=== PATIENT | female | born 1955 | race Caucasian/White ===

== ENCOUNTER 2025-08-16 18:39 | Inpatient (IN) | payer MEDICARE, SELFPAY ==
[2025-08-16 18:40] VITALS: BP 177/91; PULSE 100; RESP 18; TEMP 36.4; O2SAT 99
--- NOTE | 2025-08-16 19:10 | RAD_ITS ---
PROCEDURE: HIP, UNI W/ PELVIS 2-3 VIEWS 08/16/2025 REASON FOR EXAM: FALL- UNABLE TO AMBULATE TECHNIQUE: Procedure Code: RAD Modality: DX Procedure: HIP, UNI W/ PELVIS 2-3 VIEWS Laterality: Right COMPARISON: None. FINDINGS: Acute impacted fracture of the right femoral neck with foreshortening and mild varus angulation. No additional acute fracture or dislocation appreciated. Bilateral hip joints are intact with mild degenerative arthrosis. Degenerative changes of the lower lumbosacral spine. Qualitative osteopenia. Degenerative calcified probable uterine fibroid in the left hemipelvis. RAD/HIP, UNI W/ Pelvis 2-3 Views IMPRESSION: Acute impacted fracture of the right femoral neck. No dislocation. Reading Location: [id number]
--- NOTE | 2025-08-16 19:10 | RAD_ITS ---
PROCEDURE: CHEST 1 VIEW 08/16/2025 REASON FOR EXAM: FALL TECHNIQUE: Frontal view of the chest. COMPARISON: None available. FINDINGS: Cardiomegaly. Increased central vascular markings. Blunting of the left costophrenic angle may reflect a small left basilar pleural effusion and/or atelectasis. No sizable pleural effusion on the right. No pneumothorax. No focal consolidation. Mild degenerative changes of the spine. No acute fracture appreciated. RAD/Chest 1 View IMPRESSION: Cardiomegaly. Possible small left basilar pleural effusion and/or atelectasis. Reading Location: [id number]
[2025-08-16 19:39] VITALS: BMI 19.3
--- NOTE | 2025-08-16 20:03 | PCM.HP.STD ---
HPI - General General Date of Admission: 08/16/25 Date of Service: 08/16/25 Chief Complaint: R hip pain s/p fall. HPI Narrative The patient is a 70 y/o M w/ PMHx: Possible chronic microcytic anemia, Tobacco use, Psoriatic arthritis, Rheumatoid arthritis not on any rheumatological agents, Anxiety/panic attacks not on any regimen, RLS who presents to [facility] ED on 08/16/2025 with history of tripping and falling over a curb while shopping at [employer] with unfortunately onset significant right hip pain and debility prompting EMS and transition to the ED for evaluation. Patient noted to the beginning she had sharp stabbing and severe pain to the right hip rating it 10 out of 10 currently improved to a throbbing aching 2-3 out of 10 in severity following ED interventions. Workup in ED included T97.6, heart rate 100, BP 177/91, respiratory rate 18, 99% room air, CBC with WC 6.1, human 10, MCV 76, platelets 337 with lymphopenia, pending coags upon request evaluation of patient, BMP with potassium 3.2, BUN/creatinine 16/0.54, GFR 98, glucose 115, chest x-ray with cardiomegaly with possible small left basilar pleural effusion and/or atelectasis, plain film of the right hip and pelvis with an acute impacted fracture of the right femoral neck with no dislocation. Patient notes that she is active, ambulatory and performs all her own ADLs. She denies any marked shortness of breath or chest pain. She does continue to smoke but this is only 1 to 2 cigarettes occasionally and not on a daily basis. ED physician discussed case with orthopedic surgeon Dr. Deras. In the ED patient ministered morphine 4 mg IV x 1, Zofran 4 mg IV x 1. [facility] Medical History Restless leg syndrome Panic attacks Anxiety Tobacco use Psoriatic arthritis Rheumatoid arthritis Fibromyalgia Home Medications ?Medication ?Instructions ?Recorded ?Last Taken ?Type cyanocobalamin (vitamin B-12) 1 cap PO DAILY 08/16/25 Unknown History magnesium-potassium 99 mg- 90 mg 1 cap PO DAILY 08/16/25 Unknown History capsule multivitamin (Daily Multi-Vitamin 1 tab PO DAILY 08/16/25 Unknown History tablet) Allergy/AdvReac Type Severity Reaction Status Date / Time Penicillins (PCN) Allergy Severe Anaphylaxis Verified 08/16/25 18:41 codeine AdvReac Intermediate HEADACHE Verified 08/16/25 18:41 Family History (Updated 08/16/25 @ 20:[address] Lexie Byrd MD) Mother Alcohol abuse Alcoholic cirrhosis of liver Father Alcohol abuse Diabetes Alcoholic pancreatitis Surgical History History of tonsillectomy and adenoidectomy Social History (Updated 08/16/25 @ 20:[address] Lexie Byrd MD) household members: significant other Smoking Status: Current some day smoker tobacco type: cigarettes alcohol intake: current alcohol intake frequency: holidays/special occasions only substance use type: does not use ROS ROS Narrative Admission Review of Systems: CONSTITUTIONAL: No weight loss, fever, chills, + weakness or fatigue. HEENT: Eyes: No visual loss, blurred vision, double vision or yellow sclerae. Ears, Nose, Throat: No hearing loss, sneezing, congestion, runny nose or sore throat. SKIN: No rash or itching, lesions, wounds except + psoriatic skin changes, occasional stage ecchymoses, abrasion. CARDIOVASCULAR: No chest pain, chest pressure or chest discomfort, palpitations, edema, orthopnea, syncopal events. RESPIRATORY: No shortness of breath, cough or sputum, wheezing, hemoptysis. GASTROINTESTINAL: No anorexia, nausea, vomiting or diarrhea, abdominal pain, melena, BRBPR. GENITOURINARY: No dysuria, frequency, urgency or retention. NEUROLOGICAL: No headache, dizziness, syncope, paralysis, ataxia, numbness or tingling in the extremities, focal weakness, change in bowel or bladder control, seizure. MUSCULOSKELETAL: + muscle, back pain, joint pain or stiffness. HEMATOLOGIC: + Per current labs does appear anemic, unclear if chronic. No marked easy bleeding or bruising reported. LYMPHATICS: No enlarged nodes. No history of splenectomy. PSYCHIATRIC: + History of anxiety and panic attacks. ENDOCRINOLOGIC: No reports of sweating, cold or heat intolerance. No polyuria or polydipsia. ALLERGIES: + History of anaphylaxis. Vital Signs Vital Signs Vital Signs: 08/16/25 18:40 08/16/25 19:39 Temperature 97.6 F L Temperature Source Temporal Pulse Rate 100 Respiratory Rate 18 Respiratory Effort Normal Non-Labored Respiratory Depth Normal Respiratory Pattern Normal Blood Pressure 177/91 H Blood Pressure Mean 119 Pulse Ox 99 Oxygen Delivery Method Room Air Weight Weight: 109 lb 5.588 oz Body Mass Index (BMI) 19.3 Physical Exam Narrative Physical Examination: General: Awake, alert, oriented x 3 and cooperative, lying in the ED bed, fatigued, notes throbbing discomfort of the right hip rating it 2-3 out of 10 in severity, improved since initial ED arrival. Skin: Normal color, normal turgor, no icterus, no cyanosis except occasional psoriatic skin change, occasional stage ecchymoses, abrasion. HEENT: AT/NC, EOMI, PERRLA, mildly dry MM, no carotid bruits or JVD noted. Lungs: Mildly diminished, greater bases, mild increased respiratory rate but no distress, no rales, ronchi or wheezing. Heart: Mildly tachycardic with regular rhythm; no gallop, rub audible. Abdomen: Soft, thin habitus, NTTP, ND, normal BS, no appreciated HSM. Extremities: No cyanosis, no clubbing, mild bilateral ankle not markedly pitting chronic edema, see skin. Neurological: Patient awake, alert, oriented as noted, cognitive function intact; pupils equally reactive to light and accommodation, cranial nerves grossly normal, moving all 4 extremities except expected limitation right lower extremity given fall with hip fracture, no focal deficits, strength severely globally decreased secondary to acute presentation complaints. Psychiatric: Affect appears anxious, verbalizing that she is anxious, does have history of anxiety and panic attacks. Results Lab / Micro Data 08/16/25 19:35 08/16/25 19:35 Imaging Radiology Impression Chest X-Ray 08/16/25 19:10 IMPRESSION: Cardiomegaly. Possible small left basilar pleural effusion and/or atelectasis. Reading Location: [facility] Hip/Pelvis X-Ray 08/16/25 19:10 IMPRESSION: Acute impacted fracture of the right femoral neck. No dislocation. Reading Location: [facility] Assessment & Plan Assessment/Plan (1) Closed right hip fracture: PLAN: Plan The patient is a 70 y/o M w/ PMHx: Possible chronic microcytic anemia, Tobacco use, Psoriatic arthritis, Rheumatoid arthritis not on any rheumatological agents, Anxiety/panic attacks not on any regimen, RLS who presents to [facility] ED on 08/16/2025 with history of tripping and falling over a curb while shopping at [employer] with unfortunately onset significant right hip pain and debility prompting EMS and transition to the ED for evaluation. #1. General debility, right hip pain s/p mechanical fall w/ acute impacted fracture of the right femoral neck: Orthopedic surgery consulted from ED. Will admit to [facility], maintain NPO after midnight for planned intervention per orthopedic surgery 08/17/2025, continue gentle IVFs, ann placement, monitor I/Os, frequent positioning, fall precautions, Pain, anti-emetic regimen. PT/OT following operative intervention. CM consulted for discharge planning. Per NSQIP patient low or potentially moderate risk for perioperative cardiac events given she does have cardiomegaly but denies any concerning symptomatology and no previous cardiac history reported; however, to be cautious will obtain preoperative EKG, supplement potassium, obtain magnesium level as noted, discussed with orthopedic surgeon and if these are appropriate and no concerns arise with plan transition to the OR 08/17/2025. #2. Elevated BP without hypertensive diagnosis: Patient denies any history of hypertensive history, elevated BP in the ED, likely pain related as well as anxiety, will have as needed as needed hydralazine. #3. Hypokalemia: Admission K+ 3.2, magnesium level requested, supplementation given, repeat level in AM. #4. Microcytic anemia, unclear chronicity: Admission hemoglobin 10, MCV 76, no clear comparison, will obtain iron panel, ferritin, guaiac to be cautious, continue to trend CBC to further elucidate chronicity. #5. Rheumatoid arthritis, psoriatic arthritis: Noted rheumatological disease history, notes managed without medications, encourage follow-up with rheumatology as previously arranged or as needed. #6. Tobacco Abuse: Encouraged cessation, inpatient consultation per RT, NR if desired. #7. Anxiety/panic attacks: Will have as needed hydroxyzine, suspect tachycardia and elevated blood pressure likely related. #8. DVT prophylaxis: SCDs, defer chemoprophylaxis given planned intervention per orthopedic surgery AM. #9. CODE status: Patient does not have [facility] admitted attorneys or living [address] but she notes her significant who she lives with would be here Medical Decision Making necessary. Discussed CODE status at length including difference between FULL code, DNR-CCA and DNR-CC status. Following discussions about the differences in these status, requested Full Code status. Advanced Care Planning Face to Face Time: 16 minutes. Charges/Coding Visit Charges Inpatient E&M: 36578 Init Hosp L3
[2025-08-16 20:25] LABS: Hematocrit 35.1 % (37-47); Hemoglobin 10.0 g/dL (12.0-15.0); Immature Granulocytes Count 0.040 X10^3/uL (0.0-0.0); Mean Corp Hgb Conc 28.5 g/dL (32-36); Mean Corpuscular Volume 76.0 fL (81-99); Mean Platelet Vol. 9.9 fl (6.2-12.0); NRBC Flagged by Analyzer 0 % (0-5); Platelet Count 337 K/mm3 (150-450); RBC Distribution Width CV 16.0 % (11.6-14.6); RBC Distribution Width SD 43.7 fl (35.1-43.9); Red Blood Count 4.62 M/mm3 (4.2-5.4); White Blood Count 6.1 K/mm3 (4.4-11.0)
[2025-08-16 20:33] LABS: Anion Gap 15 (5-15); BUN 16 mg/dL (4-19); BUN/Creat Ratio 28.8 RATIO (10-20); Calcium,Total 8.7 mg/dL (7.6-11.0); Carbon Dioxide 25.6 mmol/L (21.0-32.0); Chloride 102 mmol/L (98-108); Estimated Creatinine Clearance 50.50 ml/min (50-250); Glucose 115 mg/dL (70-99); Potassium 3.2 mmol/L (3.3-5.1)
[2025-08-16 20:54] VITALS: BP 171/71; PULSE 84; RESP 16; TEMP 36.6; O2SAT 92
--- NOTE | 2025-08-16 21:22 | EDS_ITS ---
HPI History of Present Illness HPI Narrative: Patient presents with right hip pain that began after a fall today. Patient states she tripped over an uneven curb and landed on her right hip. Patient states she was unable to stand after the fall. Patient describes her pain as throbbing. Patient states it is worse with movement. Patient denies any paresthesias or weakness. Patient Nuys any head injury or loss of consciousness. Patient denies any other injuries. Chief Complaint: Fall Informant: patient Occured/Mechanism Mechanism/Context: Yes fall Onset/Context/Timing Onset: Today Context: Sudden Onset Timing: Continuous Quality of Pain: Throbbing Location: Right hip Worsened by: Movement Relieved by: Nothing Associated Symptoms Associated Symptoms: Negative for Parasthesia PFSH PFS Medical History Scoliosis Restless leg syndrome Panic attacks Anxiety Tobacco use Psoriatic arthritis Rheumatoid arthritis Fibromyalgia Home Medications ?Medication ?Instructions ?Recorded ?Last Taken ?Type cyanocobalamin (vitamin B-12) 1 cap PO DAILY 08/16/25 Unknown History magnesium-potassium 99 mg- 90 mg 1 cap PO DAILY Unknown History capsule multivitamin (Daily Multi-Vitamin 1 tab PO DAILY 08/16 Unknown History tablet) Allergy/AdvReac Type Severity Reaction Status Date / Time Penicillins (PCN) Allergy Severe Anaphylaxis Verified 08/16/25 18:41 codeine AdvReac Intermediate HEADACHE Verified 08/16/25 18:41 Family History (Updated 08/16/25 @ 20:[address] Lexie Byrd MD) Mother Alcohol abuse Alcoholic cirrhosis of liver Father Alcohol abuse Diabetes Alcoholic pancreatitis Surgical History History of tonsillectomy and adenoidectomy Social History household members: significant other Smoking Status: Light Smoker (<10/day) alcohol intake: current alcohol intake frequency: holidays/special occasions only substance use type: does not use ROS ROS ED Constitutional Constitutional ED: Denies chills or fever(s) Eyes Eyes: Denies blurry vision or change in vision ENT ENT ED: Denies rhinorrhea or sore throat Cardiovascular Cardiovascular: Denies chest pain or palpitations Respiratory/Chest Respiratory/Chest: Denies cough or dyspnea Gastrointestinal Gastrointestinal: Denies nausea or vomiting Genitourinary Genitourinary ED: Denies dysuria or hematuria Musculoskeletal Musculoskeletal: Denies back pain or neck pain Integumentary Denies abscess or rash Neurologic Neurologic: Denies headache(s) or weakness Allergic/Immunologic Allergic/Immunologic ED: Denies mouth swelling or urticaria EXAM Physical Exam Const Vital Signs: 08/16/25 18:40 08/16/25 19:39 Temperature 97.6 F L Temperature Source Temporal Pulse Rate 100 Respiratory Rate 18 Respiratory Effort Normal Non-Labored Respiratory Depth Normal Respiratory Pattern Normal Blood Pressure 177/91 H Blood Pressure Mean 119 Pulse Ox 99 Oxygen Delivery Method Room Air Positive well nourished and well developed General Appearance ED: well developed and NAD HEENT Reports moist mucous membranes normocephalic Neck full ROM and supple Resp normal respiratory effort and clear to auscultation bilaterally Cardio regular rate and regular rhythm GI non-tender and non-distended Palpation: soft Extremity Extremity Narrative: There is shortening and external rotation of the right lower extremity. There is pain with internal and external rotation of the right lower extremity. Pedal pulses are equal bilaterally. Sensation is intact to light touch bilaterally in the lower extremities. General Extremety ED: Yes weight-bearing difficulty General Extremity: weight-bearing difficulty Neuro oriented x3, CN's II-XII intact bilaterally, moves all extremities and no sensory deficits noted Sensorium / Orientation: alert Motor Exam: strength 5/5 throughout Psych mental status grossly normal MDM MDM MDM Narrative Medical decision making narrative: Differential diagnosis includes hip fracture, contusion, and sprain. X-rays of the right hip and pelvis will be obtained to assess for fracture. Lab Data Attestation: I reviewed the patient's lab results. Lab results narrative: CBC was reviewed. There is a mild anemia with a hemoglobin of 10.0 and hematocrit 35.1. Platelets were normal. Labs: Laboratory Results - last 24 hr 08/16/25 19:35 WBC 6.1 RBC 4.62 Hgb 10.0 L Hct 35.1 L MCV 76.0 L MCH 21.6 L MCHC 28.5 L RDW Std Deviation 43.7 RDW Coeff of Oli 16.0 H Plt Count 337 MPV 9.9 Immature Gran % (Auto) 0.700 Neut % (Auto) 73.4 H Lymph % (Auto) 13.1 L [place] % (Auto) 8.4 Eos % (Auto) 3.1 Baso % (Auto) 1.3 H Absolute Neuts (auto) 4.4 Absolute Lymphs (auto) 0.79 L Nucleated RBC % 0 Sodium 142 Potassium 3.2 L Chloride 102 Carbon Dioxide 25.6 Anion Gap 15 BUN 16 Creatinine 0.54 L Estim Creat Clear Calc 50.50 Est GFR (MDRD) Non-Af 98 BUN/Creatinine Ratio 28.8 H Glucose 115 H Calcium 8.7 Radiography Diagnostic Testing: Clinical Impression(s) from Imaging Studies Chest X-Ray 08/16/25 19:10 IMPRESSION: Cardiomegaly. Possible small left basilar pleural effusion and/or atelectasis. Reading Location: [facility] Hip/Pelvis X-Ray 08/16/25 19:10 IMPRESSION: Acute impacted fracture of the right femoral neck. No dislocation. Reading Location: [facility] X-rays of the right hip and pelvis were obtained. There are 3 views. On my independent interpretation, there is a impacted fracture of the femoral neck of the right hip. There is no pelvic fracture noted. Radiologist also interpreted the x-rays and agrees. Portable 1 view chest x-ray was obtained. On my independent interpretation, lung hair show atelectasis and a small left basilar pleural effusion. There is cardiomegaly noted. Bony thorax is normal. There is no acute process noted. Radiologist also interpreted the x-ray and agrees. Treatment and Re-Evaluation Narrative: Patient and family were advised of the findings. Patient was debating whether she wanted to go back to her hometown for definitive therapy. Patient eventually agreed to stay here. Case was discussed with Dr. Deras. He will see the patient in the hospital. Case was discussed with the hospitalist. She will admit the patient to her service. Discharge Plan Disposition Disposition: Acute Care [facility] Discharge Date/Time: 08/16/25 21:22
[2025-08-16 21:23] VITALS: BMI 20.1
[2025-08-16 21:24] VITALS: BP 169/84; PULSE 96; RESP 17; TEMP 37; O2SAT 95
--- NOTE | 2025-08-16 21:28 | EKG12_ITS ---
Test Reason : Blood Pressure : */* mmHG Vent. Rate : 86 BPM Atrial Rate : 86 BPM P-R Int : 168 ms QRS Dur : 72 ms QT Int : 386 ms P-R-T Axes : 62 9 47 degrees QTcB Int : 461 ms Normal sinus rhythm Septal infarct , age undetermined Abnormal ECG No previous ECGs available Confirmed by Joni Clemons ([id number]), editor continuity and script NICHOLAS CORONADO ([id number]) on 08/27/2025 11:44:06 AM Also confirmed by Joni Clemons ([id number]), editor continuity and script NICHOLAS CORONADO ([id number]) on 08/28/2025 10:12:00 AM Referred By: GOLDY Confirmed By: Joni Clemons
[2025-08-16] MEDS: Senna/Docusate Sodium 1 Tablet 2 TABLET PO (21:35)
[2025-08-16] MEDS: Potassium Chloride Oral Tablet 20 MEQ 40 MEQ PO (21:35)
[2025-08-16 21:43] LABS: Magnesium 1.9 mg/dL (1.5-2.2)
[2025-08-16 21:50] LABS: Ferritin 13 ng/mL (22-378); Iron 13 ug/dL (50-170); Iron Binding Capacity,Unsat 442 ug/dL (228-428)
[2025-08-16 22:03] VITALS: BMI 20.1
[2025-08-16] MEDS: 0.9% Normal Saline (1000mL) 1,000 ML 75 ML IV (22:22)
[2025-08-16] MEDS: 0.9% Saline Lock 10 ML Syringe IV (22:22)
[2025-08-16 22:31] LABS: Prothrombin Time (Protime)PT. 13.0 SECONDS (11.7-14.9)
[2025-08-16 22:32] LABS: Partial Thromboplast Time 30.7 Seconds (24.1-36.2)
[2025-08-16 22:38] LABS: Iron Binding Capacity,Total 455 ug/dL (250-450)
[2025-08-17] VITALS (19 sets, daily range): BP systolic 123–171; BP diastolic 63–97; PULSE 81–112; RESP 16–18; TEMP 36.5–43.3; O2SAT 88–100; BMI 20.1
--- NOTE | 2025-08-17 05:50 | HIP_PTH ---
PATIENT: JAYLYN EASTMAN LOC: [facility] U#:[id number] AGE/SX: 70/F ROOM: DE322 RE08/16/[address]: Dr. Zack Hurtado MD : 1955 BED: 1 DIS: 08/20/2025 SPEC #: [id number] RECD: 08/19/25 07:40 STATUS: LYSSA REINA #: [id number] NAYANA: 08/17/25 05:[address]: Armando Deras DEPT: SURGICAL PATHOLOGY RECD BY: Justus Robles ENTERED: 08/19/25 10:14 SP TYPE: TOTAL HIP OTHR DR: MD Dr. Zack Lee MD No Primary Care Phys Tissues: A - Hip, NOS Procedures: Decalcification bone/plaque Surgery Specimen Level III HEADER OPERATION: Total hip replacement PRE-OP DIAGNOSIS: Closed right hip fracture TISSUE SUBMITTED: A- Right femoral head debrided bone and tissue MICROSCOPIC DIAGNOSIS A. Bone, femur, head, right, total hip replacement: * Benign cartilage and bone with areas of degenerative changes and disrupted bone trabeculae with hemorrhage consistent with fracture * Areas of trilineage hematopoiesis MICROSCOPIC DESCRIPTION Slides are reviewed. GROSS DESCRIPTION A. Received in formalin labeled with the patient's name and date of . Designated as right femoral head debrided bone and tissue is a 4.3 x 4.3 x 3.3 cm slightly irregular ovoid femoral head with a 6 small portion of attached femoral neck, 1.5 cm in length by 1.9 cm in diameter. The resection margin is somewhat shaggy and congested. The articular cartilage is fitzgerald with erythematous granularity and focal areas of detachment; osteophyte formations and eburnation are not identified. Sectioning reveals fitzgerald-yellow to red, trabeculated medullary bone. [employer] sections are submitted in 2 cassettes, following decalcification as follows: A1: Femoral headA2: Femoral head with portion of attached, apparent femoral neck DC 08/19/2025 CPT:89873,31188
[2025-08-17] MEDS: Sodium Chloride 15ML DROPS 2 DRP OPHTHALMIC ×3 (06:34→21:51)
[2025-08-17 06:35] LABS: Hematocrit 31.0 % (37-47); Hemoglobin 9.2 g/dL (12.0-15.0); Immature Granulocytes Count 0.020 X10^3/uL (0.0-0.0); Mean Corp Hgb Conc 29.7 g/dL (32-36); Mean Corpuscular Volume 74.2 fL (81-99); Mean Platelet Vol. 9.9 fl (6.2-12.0); NRBC Flagged by Analyzer 0 % (0-5); Platelet Count 312 K/mm3 (150-450); RBC Distribution Width CV 15.9 % (11.6-14.6); RBC Distribution Width SD 42.7 fl (35.1-43.9); Red Blood Count 4.18 M/mm3 (4.2-5.4); White Blood Count 8.6 K/mm3 (4.4-11.0)
[2025-08-17] MEDS: 0.9% Saline Lock 10 ML Syringe IV ×3 (06:35→18:48)
[2025-08-17 07:00] LABS: AST(SGOT) 22 U/L (<=31); Alanine Aminotransfer ALT/SGPT 15 U/L (<=34); Albumin, Serum 3.8 g/dL (3.4-4.8); Alkaline Phosphatase 102 U/L (35-104); Anion Gap 11 (5-15); BUN 14 mg/dL (4-19); BUN/Creat Ratio 24.1 RATIO (10-20); Calcium,Total 8.3 mg/dL (7.6-11.0); Carbon Dioxide 27.7 mmol/L (21.0-32.0); Chloride 104 mmol/L (98-108); Estimated Creatinine Clearance 51.01 ml/min (50-250); Globulin 2.3 g/dL (2.2-4.2); Glucose 122 mg/dL (70-99); Potassium 3.3 mmol/L (3.3-5.1)
--- NOTE | 2025-08-17 08:01 | CONS.ORTHO ---
HPI Consult Data Date of Consult: 08/17/25 HPI Narrative Reason for Consultation: Right hip pain HPI Narrative: JAYLYN EASTMAN, is a 70 F who presents with right hip pain. Patient is a smoker and has a history of reported rheumatoid and psoriatic arthritis neither of which is treated with any significant medications. Patient notes she was at the local [facility] when she tripped on the curb and fell. She has currently 4 out of 10 pain in her right hip worse with movement, better with immobilization. Denies any associated numbness and tingling distally. Patient prior to the fall functioned independently in her own home. Patient did her own cooking and cleaning. She did some of her outside work with assistance of her son. She describes a mildly active lifestyle. Denies any antecedent right hip pain. Patient does confirm a history of anaphylaxis or tongue swelling with penicillin injections in the past. Patient's family was at bedside for the entirety of the encounter. [facility] Medical History Macula lutea degeneration Cataract Scoliosis Restless leg syndrome Panic attacks Anxiety Tobacco use Psoriatic arthritis Rheumatoid arthritis Fibromyalgia Home Medications ?Medication ?Instructions ?Recorded ?Last Taken ?Type cyanocobalamin (vitamin B-12) 1 cap PO DAILY 08/16/25 Unknown History magnesium-potassium 99 mg- 90 mg 1 cap PO DAILY 08/16/25 Unknown History capsule multivitamin (Daily Multi-Vitamin 1 tab PO DAILY 08/16/25 Unknown History tablet) perservation 2 drp ophthalmic (eye) TID eyes 08/16/25 Unknown History Allergy/AdvReac Type Severity Reaction Status Date / Time Penicillins (PCN) Allergy Severe Anaphylaxis Verified 08/16/25 18:41 codeine AdvReac Intermediate HEADACHE Verified 08/16/25 18:41 Family History Mother Alcohol abuse Alcoholic cirrhosis of liver Father Alcohol abuse Diabetes Alcoholic pancreatitis Surgical History History of tonsillectomy and adenoidectomy Social History household members: significant other Smoking Status: Light Smoker (<10/day) alcohol intake: current alcohol intake frequency: holidays/special occasions only substance use type: does not use ROS ROS Narrative 14 point review systems outside of what is mentioned in HPI is negative Vital Signs Vital Signs Vital Signs: 08/16/25 18:40 08/16/25 19:39 08/16/25 20:54 Temperature 97.6 F L 98 F Temperature Source Temporal Pulse Rate 100 84 Pulse Strength Respiratory Rate 18 16 Respiratory Effort Normal Non-Labored Respiratory Depth Normal Respiratory Pattern Normal Blood Pressure 177/91 H 171/71 H Blood Pressure Mean 119 104 Blood Pressure Source Blood Pressure Position Blood Pressure Location Pulse Ox 99 92 Oxygen Delivery Method Room Air Oxygen Flow Rate (L/min) 08/16/25 21:24 08/16/25 22:00 08/16/25 22:00 Temperature 98.6 F Temperature Source Temporal Pulse Rate 96 Pulse Strength Strong (3+) Respiratory Rate 17 Respiratory Effort Respiratory Depth Respiratory Pattern Blood Pressure 169/84 H Blood Pressure Mean 112 Blood Pressure Source Monitor Blood Pressure Position Semi-Fowlers Blood Pressure Location Right Arm Pulse Ox 95 Oxygen Delivery Method Room Air Room Air Oxygen Flow Rate (L/min) 08/16/25 22:07 08/17/25 04:15 08/17/25 04:19 Temperature 98.9 F Temperature Source Oral Pulse Rate 95 Pulse Strength Respiratory Rate 18 Respiratory Effort Normal Non-Labored Respiratory Depth Normal Respiratory Pattern Normal Blood Pressure 157/76 H Blood Pressure Mean 103 Blood Pressure Source Monitor Blood Pressure Position Semi-Fowlers Blood Pressure Location Right Arm Pulse Ox 88 97 Oxygen Delivery Method Room Air Room Air Room Air Oxygen Flow Rate (L/min) 08/17/25 04:20 08/17/25 06:20 08/17/25 06:32 Temperature 99.4 F H Temperature Source Oral Pulse Rate 94 94 Pulse Strength Respiratory Rate 17 Respiratory Effort Normal Non-Labored Respiratory Depth Normal Respiratory Pattern Normal Blood Pressure 164/79 H 164/79 H Blood Pressure Mean 107 Blood Pressure Source Monitor Blood Pressure Position Semi-Fowlers Blood Pressure Location Right Arm Pulse Ox 99 Oxygen Delivery Method Nasal Cannula Nasal Cannula Oxygen Flow Rate (L/min) 2 08/17/25 07:39 Temperature 99.7 F H Temperature Source Oral Pulse Rate 97 Pulse Strength Respiratory Rate 16 Respiratory Effort Respiratory Depth Respiratory Pattern Blood Pressure 141/74 H Blood Pressure Mean 96 Blood Pressure Source Monitor Blood Pressure Position Semi-Fowlers Blood Pressure Location Right Arm Pulse Ox 98 Oxygen Delivery Method Nasal Cannula Oxygen Flow Rate (L/min) 2 Weight Weight: 113 lb 12.136 oz Body Mass Index (BMI) 20.1 Physical Exam Const alert and oriented x3 General Appearance: cooperative HEENT normocephalic Eyes PERRL Neck no JVD Resp normal respiratory effort Cardio Cardio Narrative: Regular distal pulse with GI non-distended Extremity Extremity Narrative: Right lower extremity: Dressing is clean dry and intact Sensations intact to light touch saphenous, sural, superficial peroneal, deep peroneal, and tibial distributions Motors intact EHL, DF, PF calves are soft and supple Small abrasion on anterior knee Skin Skin Narrative: Small abrasion on anterior right knee Neuro CN's II-XII intact bilaterally and moves all extremities Psych mental status grossly normal Psych Narrative: Mildly tearful after discussion of surgery Medical Records Data Attestation: I reviewed the patient's medical records Lab / Micro Data Attestation: I reviewed the patient's lab results. 08/17/25 05:43 08/17/25 05:43 Labs: Laboratory Results - last 24 hr 08/16/25 19:35: WBC 6.1, RBC 4.62, Hgb 10.0 L, Hct 35.1 L, MCV 76.0 L, MCH 21.6 L, MCHC 28.5 L, RDW Std Deviation 43.7, RDW Coeff of Oli 16.0 H, Plt Count 337, MPV 9.9, Immature Gran % (Auto) 0.700, Neut % (Auto) 73.4 H, Lymph % (Auto) 13.1 L, [place] % (Auto) 8.4, Eos % (Auto) 3.1, Baso % (Auto) 1.3 H, Absolute Neuts (auto) 4.4, Absolute Lymphs (auto) 0.79 L, Nucleated RBC % 0, PT 13.0, INR 1.0, APTT 30.7, Sodium 142, Potassium 3.2 L, Chloride 102, Carbon Dioxide 25.6, Anion Gap 15, BUN 16, Creatinine 0.54 L, Estim Creat Clear Calc 50.50, Est GFR (MDRD) Non-Af 98, BUN/Creatinine Ratio 28.8 H, Glucose 115 H, Calcium 8.7, Magnesium 1.9, Iron 13 L, TIBC 455 H, Iron Saturation 2.9 L, Unsaturated IBC 442 H, Ferritin 13 L 08/17/25 05:43: WBC 8.6, RBC 4.18 L, Hgb 9.2 L, Hct 31.0 L, MCV 74.2 L, MCH 22.0 L, MCHC 29.7 L, RDW Std Deviation 42.7, RDW Coeff of Oli 15.9 H, Plt Count 312, MPV 9.9, Immature Gran % (Auto) 0.200, Neut % (Auto) 81.6 H, Lymph % (Auto) 8.6 L, [place] % (Auto) 8.2, Eos % (Auto) 0.7, Baso % (Auto) 0.7, Absolute Neuts (auto) 7.0, Absolute Lymphs (auto) 0.74 L, Nucleated RBC % 0, Sodium 143, Potassium 3.3, Chloride 104, Carbon Dioxide 27.7, Anion Gap 11, BUN 14, Creatinine 0.57 L, Estim Creat Clear Calc 51.01, Est GFR (MDRD) Non-Af 97, BUN/Creatinine Ratio 24.1 H, Glucose 122 H, Calcium 8.3, Total Bilirubin 0.54, AST 22, ALT 15, Alkaline Phosphatase 102, Total Protein 6.0, Albumin 3.8, Globulin 2.3, Albumin/Globulin Ratio 1.6 Imaging Radiology Impression Chest X-Ray 08/16/25 19:10 IMPRESSION: Cardiomegaly. Possible small left basilar pleural effusion and/or atelectasis. Reading Location: [facility] Hip/Pelvis X-Ray 08/16/25 19:10 IMPRESSION: Acute impacted fracture of the right femoral neck. No dislocation. Reading Location: [facility] Independently reviewed: Findings are consistent with [place] 4 displaced subcapital femoral neck fracture Assessment & Plan Assessment/Plan (1) Subcapital fracture of right hip: PLAN: Natural history of the disease process and treatment options were discussed with the patient as well as her family and friends who are at bedside. Surgical intervention was recommended over nonsurgical intervention. Surgical interventions discussed included close reduction percutaneous pinning which was not recommended based on fracture pattern. We discussed partial versus total replacement. Based on patient's health, age, moderate arthrosis pre-existing on x-rays and overall lifestyle I did recommend total replacement as it would have the longevity to match the patient's expected lifestyle. We did discuss there is increased risk of instability with total replacement versus partial replacement. Risk and benefit of the procedure were discussed the patient at length including but not limited to blood loss, DVTs, PEs, neuro vas damage, infection, the risk of anesthesia including loss of life. We also discussed dislocations and leg length discrepancies as well as intraoperative and postoperative fractures. Patient does have scoliosis which can also affect the dislocation rate. Ultimately, after thorough discussion of these treatment options and my recommendations patient did wish to proceed with total replacement. Patient has a anaphylactic allergy to penicillin at this time we will move forward with Cleocin and vancomycin for perioperative antibiotics. All parties demonstrate understanding wish to proceed in this fashion. She is currently NPO. Will proceed to the operating room when available today. (2) Anemia: PLAN: Patient understands anemia preoperatively may lead to higher risk of transfusion postoperatively. Currently she is stable. (3) Hypertension: PLAN: Per primary service for management
--- NOTE | 2025-08-17 11:14 | CASEMGMT ---
RN CM Assessment Face to Face with patient for initial transition planning/care coordination assessment. RN CM introduced self and role at [facility] [place], pt voices understanding. Pt is A&Ox4 and is resting comfortably in bed with a flat affect. Pt's SO and Uncle at the bedside. Pt states that she is from [place], [place] ([address] from [facility] [place]) and was here visiting her Uncle before the fall. Care providers, pharmacy, and demographics verified. Admitting dx: Fall, Rt Hip Fracture, Hip Replacement scheduled for 08/17 that is still pending. LACE Strata: 1 PCP: No PCP. Offered to provide the pt with a list of local options. However, pt declines. Pt states that she will get herself established. Specialists: Denies Preferred Pharmacy: [facility] Insurance: [facility] Prescription Benefit: Yes LNOK: Harris Zuluaga (SO) Living Arrangements: Pt lives with her SO in a single story home with a flat entrance ADLs/IADLs: Indep at baseline. Current 6-Click score is 12. PT s/p surgery is pending Transportation: Self, SO DME: Denies all DME at this time. Noted that the pt is on oxygen currently and may qualify for home oxygen use. This RN CM offered to provide the pt with a list of local in-network DME companies. However, pt declines and states that she would refuse to wear it. Pt denies medical alert system resources as well. CM to follow for FWW needs. HHC/SNF: Denies hx of. Pt adamantly denies SNF needs at this time. Encouraged the pt to work with PT after surgery to see what she would best qualify for. Pt's Uncle then expressed frustration about this underwriter mortgage loan attempting to gather DC planning information. Informed the pt that HH cannot be established due to the pt not having a PCP to follow HH orders. Pt informed about SNF and OP Tx. Pt states that she prefers to go home at the time of DC and get established with a PCP and then have that provider set up HHC. Pt?s goal: Home Plan: TBD. At this time, surgery and PT s/p Hip replacement is pending. Collaborated with the hospitalist, Dr. Hurtado, to inquire when the pt may be ready for DC. Dr Hurtado states that he is unsure at this time. Updated the hospitalist that the pt initially refuses SNF and that HHC will not be able to get set up. Pt and pt's family deny further questions or needs at this time as they are awaiting OR availability for surgery. CM to follow. Toshia Llanes RN CM
--- NOTE | 2025-08-17 11:25 | PN.HOSP_ITS ---
Reason for Visit Chief Complaint: R hip pain s/p fall. Objective Data Objective Data Vital Signs: Vital Signs Temp Pulse Resp BP Pulse Ox O2 Del Method O2 Flow Rate 99.7 F H 97 16 141/74 H 98 Nasal Cannula 2 08/17/25 07:39 08/17/25 07:39 08/17/25 07:39 08/17/25 07:39 08/17/25 08:49 08/17/25 08:49 08/17/25 08:49 Oxygen Flow Rate (L/min) 2 Oxygen Delivery Method Nasal Cannula Weight: 113 lb 12.136 oz Body Mass Index (BMI) 20.1 Intake & Output: Intake and Output for Last 24 Hours 08/15/25 08/16/25 08/17/25 23:59 23:59 23:59 Intake Total 200 / 200 Output Total 600 / 600 Balance -400 / -400 Lab / Micro Data 08/17/25 05:43 08/17/25 05:43 Labs: Laboratory Results - last 24 hr 08/16/25 19:35: WBC 6.1, RBC 4.62, Hgb 10.0 L, Hct 35.1 L, MCV 76.0 L, MCH 21.6 L, MCHC 28.5 L, RDW Std Deviation 43.7, RDW Coeff of Oli 16.0 H, Plt Count 337, MPV 9.9, Immature Gran % (Auto) 0.700, Neut % (Auto) 73.4 H, Lymph % (Auto) 13.1 L, [place] % (Auto) 8.4, Eos % (Auto) 3.1, Baso % (Auto) 1.3 H, Absolute Neuts (auto) 4.4, Absolute Lymphs (auto) 0.79 L, Nucleated RBC % 0, PT 13.0, INR 1.0, APTT 30.7, Sodium 142, Potassium 3.2 L, Chloride 102, Carbon Dioxide 25.6, Anion Gap 15, BUN 16, Creatinine 0.54 L, Estim Creat Clear Calc 50.50, Est GFR (MDRD) Non-Af 98, BUN/Creatinine Ratio 28.8 H, Glucose 115 H, Calcium 8.7, Magnesium 1.9, Iron 13 L, TIBC 455 H, Iron Saturation 2.9 L, Unsaturated IBC 442 H, F erritin 13 L 08/17/25 05:43: WBC 8.6, RBC 4.18 L, Hgb 9.2 L, Hct 31.0 L, MCV 74.2 L, MCH 22.0 L, MCHC 29.7 L, RDW Std Deviation 42.7, RDW Coeff of Oli 15.9 H, Plt Count 312, MPV 9.9, Immature Gran % (Auto) 0.200, Neut % (Auto) 81.6 H, Lymph % (Auto) 8.6 L, [place] % (Auto) 8.2, Eos % (Auto) 0.7, Baso % (Auto) 0.7, Absolute Neuts (auto) 7.0, Absolute Lymphs (auto) 0.74 L, Nucleated RBC % 0, Sodium 143, Potassium 3.3, Chloride 104, Carbon Dioxide 27.7, Anion Gap 11, BUN 14, Creatinine 0.57 L, Estim Creat Clear Calc 51.01, Est GFR (MDRD) Non-Af 97, BUN/Creatinine Ratio 24.1 H, Glucose 122 H, Calcium 8.3, Total Bilirubin 0.54, AST 22, ALT 15, Alkaline Phosphatase 102, Total Protein 6.0, Albumin 3.8, Globulin 2.3, Albumin/Globulin Ratio 1.6 Radiography Diagnostic Testing: Radiology Impression Chest X-Ray 08/16/25 19:10 IMPRESSION: Cardiomegaly. Possible small left basilar pleural effusion and/or atelectasis. Reading Location: [facility] Hip/Pelvis X-Ray 08/16/25 19:10 IMPRESSION: Acute impacted fracture of the right femoral neck. No dislocation. Reading Location: [facility] Physical Exam Narrative Seen and examined. Patient admitted with fall resulting to right femoral neck fracture. Denies chronic lung disease. Denies chronic heart disease. Patient is going to be taken for surgery. Physical exam General: Alert, Oriented x3, Cooperative. BMI 20.2 kg/m? HEENT: Atraumatic, PERRLA, EOMI, Normocephalic. Oral: No Gingival or Mucosal Lesions/ Ulcerations Neck: Supple, No JVD, Negative Carotid Bruits Chest wall/Lungs: Air entry diminished in bilateral lung bases. No crepitation/rhonchi Cardiovascular: Regular rate and rhythm, Normal S1,S2, No M/G/R Abdomen: Bowel Sounds Present, Soft, Non Tender, Non-Distended : No dysuria. No renal angle tenderness. No suprapubic tenderness. Extremities: No edema, Capillary Refill Less than 3 Seconds Skin: No rashes, No breakdown Musculoskeletal: Her right hip mainly greater trochanter is tender. RLE externally rotated. Neurological: Cranial nerves II-XII grossly intact, DTR 2+/4. No acute focal neurological deficit. Psych/Mental Status: Flat affect Assessment & Plan Assessment/Plan (1) Closed right hip fracture: PLAN: Plan The patient is a 70 y/o M after tripped and fell over a curb while shopping at [employer] with unfortunately onset significant right hip pain and debility prompting EMS and transition to the ED for evaluation. #1. Acute debility due to right hip pain from acute impacted fracture of the right femoral neck: Orthopedic surgery consulted from ED. patient is being admitted on [facility] floor. Pain control. PT and OT ordered. Supportive medication for nausea and vomiting. manager play consulted. As per NSQIP criteria, patient low to moderate risk for perioperative cardiac events. Denies chronic heart disease or lung disease. #2. Elevated BP without hypertensive diagnosis: Patient denies any history of hypertensive history, elevated BP in the ED, likely pain related as well as anxiety, will have as needed as needed hydralazine. #3. Hypokalemia: Admission K+ 3.2, repeat potassium is 3.3. Continue replace potassium. Serum magnesium normal 1.9. #4. Chronic microcytic anemia: Admission hemoglobin 10, MCV 76, iron profile shows low iron, TIBC high iron saturation 2.9%. Unsaturated IBC high 442 and ferritin is low therefore consistent with iron deficiency anemia. Stool for occult blood ordered. IV iron ordered. Repeat H&H 9.2/31%. Monitor CBC #5. Rheumatoid arthritis, psoriatic arthritis: Noted rheumatological disease history, notes managed without medications, encourage follow-up with rheumatology as previously arranged or as needed. #6. Tobacco Abuse: Patient smokes less than 10 cigarettes/day. Nicotine patch ordered. Encouraged cessation #7. Anxiety/panic attacks: as needed hydroxyzine, is ordered. #8. DVT prophylaxis: SCDs, DOAC Xarelto or Eliquis after 24 hours of surgery if hemostasis is intact #9. CODE status: Patient does not have [facility] securities attorney or living [address] but she notes her significant who she lives with would be here Medical Decision Making necessary. Discussed CODE status at length including difference between FULL code, DNR-CCA and DNR-CC status. Full code Charges/Coding Visit Charges Inpatient E&M: 34948 Subs Hosp L2
--- NOTE | 2025-08-17 14:11 | PCM.PRE.AN2 ---
ASA Classification* ASA Classification ASA Classification: 3 and E Assessment & Plan Anesthesia* Anesthesia Assessment Anesthesia Assessment: Discussed sedation and/or anesthesia options, risks, benefits, and alternatives with patient/parents/legal guardian/POA. Questions invited. The patient/parents/legal guardian/POA seems to understand and agrees to proceed with anesthesia plan. Reviewed the physical assessment, medical history, allergy history and patient home medications list prior to surgery/procedure/anesthetic and documented any changes. Performed airway and anesthesia risk assessments. Anesthesia Type Anesthesia Type: General Anesthesia Focused Assessment* Temperature: 98.7 F Pulse Rate: 90 Blood Pressure: 160/75 Respiratory Rate: 16 Pulse Ox: 99 Oxygen Flow Rate (L/min): 2 Airway Assessment Mouth opens: >3 cm Mallampati Score: II Labs Anesthesia Preop lab: CBC WBC, (4.4-11.0) 8.6 K/mm3 Today, 05:43 RBC, (4.2-5.4) 4.18 M/mm3 L Today, 05:43 Hgb, (12.0-15.0) 9.2 g/dL L Today, 05:43 Hct, (37-47) 31.0 % L Today, 05:43 Plt Count, (150-450) 312 K/mm3 Today, 05:43 CHEMISTRY Potassium, (3.3-5.1) 3.3 mmol/L Today, 05:43 Sodium, (133-145) 143 mmol/L Today, 05:43 Magnesium, (1.5-2.2) 1.9 mg/dL 08/16/25, 19:35 BUN, (4-19) 14 mg/dL Today, 05:43 Creatinine, (0.70-1.20) 0.57 mg/dL L Today, 05:43 Glucose, (70-99) 122 mg/dL H Today, 05:43 COAG PT, (11.7-14.9) 13.0 SECONDS 08/16/25, 19:35 Pre-Assessment Diagnosis/Proposed Procedure Planned Operative Procedure(s): Right total Anesthesia History Anesthesia History - temple marker: Anesthesia History - temple marker Hx Hospitalization Any Problems With Anesthesia No 08/16/25 22:36 Cholinesterase deficiency You/Your Family Experience No 08/16/25 22:36 fever (hyperthermia) with Relationship Recent Exposure to Contagious No 08/16/25 22:36 Disease Does patient have nerve No 08/16/25 22:36 stimulator Patient instructed to have No 08/16/25 22:36 device shut off --Does patient have Pacemaker No 08/17/25 06:20 or ICD? When Was Last Pacemaker Check QUESTION #4 FULL TEXT: You/Your Family Experience fever (hyperthermia) with Anesthesia Last Oral Intake Last Oral intake: Last Oral Intake NPO since 00:00 08/17/25 06:20 Meds taken in AM with sips of Yes 08/17/25 06:20 water? Meds patient instructed to Hydroxyzine taken @ 00:25 08/17/25 06:20 take am of surgery PONV PONV - temple marker: PONV - temple marker Female HX of Motion Sickness HX of N/V After Surgery Non-Smoker Duration of Surgery greater than 60 minutes Number of Risk Factors PONV Score Height & Weight Height & Weight: Anesthesia: Height & Weight Height 5 ft 2.99 in 08/17/25 06:20 Weight: 51.6 kg 08/17/25 06:20 Body Mass Index (BMI) 20.1 08/17/25 06:20 Respiratory Assessment Respiratory Assessment - temple marker: Respiratory Tract Infection Hx - temple marker Hx Respiratory Tract Infection No 08/16/25 22:36 STOP Sleep Apnea STOP Sleep Apnea - temple marker: STOP Sleep Apnea - temple marker Hx Hypertension No 08/17/25 11:01 Hx Sleep Apnea No 08/16/25 21:11 CPAP BIPAP Do you snore loudly (louder No 08/16/25 21:11 than talking or can be heard Do you often feel tired/ No 08/16/25 21:11 fatigued/ sleepy during daytime? Has anyone observed you stop No 08/16/25 21:11 breathing during sleep? STOP Results Negative 08/16/25 21:11 QUESTION #5 FULL TEXT : Do you snore loudly (louder than talking or can be heard through closed doors)? 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 Specify any problems Hx of Preganancy in last 3 No 08/16/25 21:11 Months Nurse Filling Out Transfusion DREDICK 08/16/25 21:11 & Questions: Date: 08/16/25 08/16/25 21:11 Time: 21:20 08/16/25 21:11 Patient unable to answer at this time (ie. confused, unrespo /Reproduction History /Reproductive History - temple marker: /Reproductive Hx- temple marker Hx Now No 08/16/25 22:36 Gestational Age (in weeks): EDC: Hx Hx Para Hx Section SAB No 08/16/25 22:36 Does the father of the baby or his family experience fever w Father of the baby Malignant Hypertension history comment Active Medications Active Medications: Current Medications Generic Name Dose Route Start Last Admin Trade Name Freq PRN Reason Stop Dose Admin Acetaminophen 650 mg 08/16/25 21:11 08/16/25 21:35 Acetaminophen 325 Mg Tablet PO 650 mg Q4H PRN PRN Administration Fever, pain 1-06/14 Al Hydroxide/Mg Hydroxide 30 ml 08/16/25 21:11 Mag Hydrox/Al Hydrox/Simeth 30 Ml Udc PO Q6H PRN PRN Gastric Burning Albuterol Sulfate 2.5 mg 08/16/25 21:11 Albuterol 2.5 Mg/3 Ml Vial.Neb. INHALATION Q2H PRN PRN Dyspnea, wheezing Calamine/Phenol 1 applic 08/16/25 22:00 08/17/25 10:00 Menthol/Lanolin/Calamine/Znox 113 Gm Tube TOPICAL Not Given 4X/DAY ELIE Protocol Guaifenesin 20 ml 08/16/25 21:11 Guaifenesin 10 Ml Udc (200mg/10ml) PO Q4H PRN PRN COUGH Hydralazine HCl 10 mg 08/16/25 21:11 08/17/25 06:32 Hydralazine 20 Mg/Ml Vial IV 10 mg Q4H PRN PRN Administration SBP > 160 Protocol Hydroxyzine HCl 12.5 mg 08/16/25 21:23 08/17/25 00:25 Hydroxyzine 10 Mg Tablet PO 12.5 mg 4X/DAY PRN PRN Administration ANXIETY/RESTLESSNESS/SLEEP Sodium Chloride 250 mls @ 15 mls/hr 08/16/25 21:17 IV .[id number] PRN Saline Flush Sodium Chloride 250 mls @ 15 mls/hr 08/16/25 21:17 IV .[id number] PRN Additional IVPB Infusion Melatonin 3 mg 08/16/25 21:11 Melatonin 3 Mg Tablet PO QHS PRN PRN INSOMNIA Morphine Sulfate 2 - 4 mg 08/16/25 21:11 08/17/25 12:18 Morphine 4 Mg/Ml Syringe IV 2 mg Q2H PRN PRN Administration Pain Score 4-10 Ondansetron HCl 4 mg 08/16/25 21:11 Ondansetron 4 Mg/2 Ml Vial IV Q8H PRN PRN NAUSEA/VOMITING Oxycodone HCl 2.5 - 5 mg 08/16/25 21:11 Oxycodone 5 Mg Tablet PO Q4H PRN PRN Pain Score 4-10 Senna/Docusate Sodium 2 tablet 08/16/25 22:00 08/17/25 12:18 Senna/Docusate Sodium 1 Tablet PO Not Given BID ELIE Sodium Chloride 10 - 40 ml 08/16/25 21:17 08/17/25 12:19 0.9% Saline Lock 10 Ml Syringe IV 10 ml UD PRN Administration SALINE FLUSH Sodium Chloride 2 drp 08/17/25 06:00 08/17/25 12:22 Sodium Chloride 15ml Drops OPHTHALMIC 2 drp TID ELIE Administration PFSH Medical History Macula lutea degeneration Cataract Scoliosis Restless leg syndrome Panic attacks Anxiety Tobacco use Psoriatic arthritis Rheumatoid arthritis Fibromyalgia Home Medications ?Medication ?Instructions ?Recorded ?Last Taken ?Type cyanocobalamin (vitamin B-12) 1 cap PO DAILY 08/16/25 Unknown History magnesium-potassium 99 mg- 90 mg 1 cap PO DAILY 08/16/25 Unknown History capsule multivitamin (Daily Multi-Vitamin 1 tab PO DAILY 08/16/25 Unknown History tablet) perservation 2 drp ophthalmic (eye) TID eyes 08/16/25 Unknown History Allergy/AdvReac Type Severity Reaction Status Date / Time Penicillins (PCN) Allergy Severe Anaphylaxis Verified 08/16/25 18:41 codeine AdvReac Intermediate HEADACHE Verified 08/16/25 18:41 Family History Mother Alcohol abuse Alcoholic cirrhosis of liver Father Alcohol abuse Diabetes Alcoholic pancreatitis Surgical History History of tonsillectomy and adenoidectomy Social History household members: significant other Smoking Status: Light Smoker (<10/day) alcohol intake: current alcohol intake frequency: holidays/special occasions only substance use type: does not use Review of Systems (Anesthesia) ROS Narrative System reviewed and no additional complaints, except as documented.
[2025-08-17] MEDS: Lactated Ringers 1,000 ML 15 ML IV (14:20)
[2025-08-17] MEDS: Lactated Ringers 1,000 ML 1000 ML IV (14:24)
[2025-08-17] MEDS: Vancomycin IV 1,000 MG/20 ML Vial 750 MG IV (14:34)
--- NOTE | 2025-08-17 15:09 | RAD_ITS ---
PROCEDURE: HIP MIN 2 VIEWS (PORTABLE) 08/17/2025 REASON FOR EXAM: R HIP ARTHROPLASTY TECHNIQUE: Procedure Code: RADH_P Modality: DX Procedure: HIP MIN 2 VIEWS (PORTABLE) Laterality: Right Fluoroscopy time: 4.1 seconds Total images: 6 COMPARISON: None FINDINGS: Fluoroscopic spot images were obtained during right hip replacement. Initial image shows sizing rasp in place. Subsequent image shows placement of the prosthesis. Alignment is anatomic in the single plane. RAD/Hip Min 2 Views (Portable) IMPRESSION: Intraoperative localization. Correlate with procedural note. Reading Location: [id number]
[2025-08-17] MEDS: TRANEXAMIC ACID 1,000 MG/10 ML ML 1001 MG IV (15:28)
--- NOTE | 2025-08-17 15:51 | PCM.OPRPT ---
Operative Report (Standard) Operative Information Date of Procedure: 08/17/25 Pre-Operative Diagnosis: Right hip subcapital displaced femoral neck fracture with moderate primary osteoarthritis Post-Operative Diagnosis: Right hip subcapital displaced femoral neck fracture with moderate primary osteoarthritis Surgery/Procedure Performed: Right direct anterior total replacement home theater installer: Yes Tumble Tailstock Turret Lathe Operator: Tammy Rubio Tasks completed by nurse first aid: Other (See body of operative report) Additional quality control assistant?: No Type of Anesthesia: General RN Documented Start/Stop Times: Operation Date: 08/17/25 05:50 Case Time Anesthesia Start 08/17/25 14:22 Into Room 08/17/25 14:22 Procedure Start 08/17/25 14:46 Procedure End 08/17/25 15:58 Anesthesia End 08/17/25 16:05 Out of Room 08/17/25 16:05 Into Recovery 08/17/25 16:08 Procedure Start Time: 14:46 Procedure Stop Time: 15:58 Select all DRAINS/GRAFTS/IMPLANTS that apply: Prosthetic device Prosthetic device details: See body of operative report Special Medications: 2 g Ancef, 1 g TXA at incision, 1 g TXA closure Estimated Blood Loss: 200 mL Fluids Replaced: 600 mm crystalloid Specimen collected: Yes Description of specimen(s) removed: Bony cuts Description of surgery: Components used: 1. Insignia [place] femoral stem size 3 high offset 2. [place] trident 2 acetabular shell size 48 mm 3. [place] X3 polyethylene 38D 4. [place] Biolox delta 28 mm, -2.7 mm femoral head 5. Cand[place] cobalt-chromium MDM metal liner alpha code D Brief history operative indications: 70 yo female who who sustained a fall and subsequent subcapital displaced [place] 4 femoral neck fracture. Total hip replacement was discussed with the patient with risks and benefits including but not limited to blood loss, DVTs, PEs, neurovascular damage, dislocation, general risks of anesthesia including loss of life. Patient demonstrated an understanding medical clearance is obtained the patient was consented for surgery. Procedure: On the date of procedure the patient's R hip was marked in the preoperative area. Patient was then taken back to the operating room where anesthesia assumed control of the C-spine and airway and administered anesthetic. Patient was transferred to the operating table and placed in the supine position. The hips were placed at the break of the bed and a sacral bump was placed. The R lower extremity was then prepped out in a sterile fashion using chlorhexidine while the surgeon scrubbed. The PA was vital in the positioning of the patient. Upon reentering the room the R lower extremity was draped in the standard orthopedic fashion and the incision was marked. A timeout was called and everyone agreed upon the side, the site, the procedure be performed, antibody given, and patient's identity. At this time incision was made through skin, subcutaneous tissue, and fat down to fascia. The fascia was then incised and the TFL was retracted laterally. A retractor was placed on the lateral border of the femoral neck. Attention was directed to the inferior portion of the approach and all crossing vessels were identified and appropriately coagulated. A retractor was then placed on the medial portion of the femoral neck. The anterior capsule was then cleared of all soft tissue and then H shaped capsulotomy was made. The retractors were then placed inside the capsule. The femoral neck was identified and a cleanup cut was made. At this time a power corkscrew was used to remove the femoral head. Attention was then turned toward the acetabulum where the soft tissues were appropriately retracted and the acetabulum was sequentially reamed to 48 mm. A 48 mm cup was then selected and impacted into place. Acetabular liner was impacted into place and locking mechanism was verified. The position of the acetabular cup was then verified under live fluoroscopy. Attention was then turned to the femur. Soft tissue releases on the medial and lateral femoral neck were appropriately done, the leg was externally rotated and lateralized. A Leon retractor was placed medially and proximally to the greater trochanter this allowed appropriate visualization and exposure of the femoral canal. Rongeour was then used to remove excess lateral bone. A canal finder and entry broach were used to open the proximal canal. Once we verified we were down the femoral canal we subsequently broached up to a size 3 femur. The appropriate neck was placed in the previously selected head was trialed with a -2.7 mm neck. Traction was pulled and the hip was reduced with internal rotation. Once it was appropriately reduced and stability was checked. There was minimal shuck, equal leg lengths and appropriate stability with hyperextension and external rotation as well as with 90? flexion and internal rotation. Fluoroscopy was then also used to verify the position of the components and leg lengths using the contralateral side for comparison. The trial components were then dislocated the proximal femur was again exposed and the components were removed from the wound. The final components were verified and opened. The wound was copiously irrigated out with normal saline. The acetabulum was checked for any residual debris. The final components were placed and impacted. Traction and internal rotation were again used to reduce the hip. After adequate reduction the hip remained stable with appropriate leg lengths. The final components were once again checked with live fluoroscopy and were found to be satisfactory. The wound was then copiously irrigated with normal saline once more, and hemostasis was obtained. Closure was then done using #1 Vicryl runner to close the fascia. A 2-0 vicryl interuppted sutures were used to close the subcutaneous skin. A 3-0 Monocryl and Steri-Strips were used for final skin closure. A Silverlon dressing was placed. Patient was awakened by anesthesia and transferred to the [facility]. Patient was then transferred to the PACU for recovery. Postoperative plan: Patient will get 24 hours postop antibiotics. Patient will get in-house physical therapy and will be weight-bear as tolerated. Patient will follow up in office in 2 weeks for a wound check and x-rays. Recommend aspirin 81 mg twice daily for DVT prophylaxis. During the course of the procedure the physician machine assistant (PE) played a vital role. Their intimate knowledge of my steps in the procedure aided in safe and expedient completion of the procedure. The PE played a vital rolls in positioning particularly in obtaining the appropriate positioning of the sacral bump. The PE was also vital in the retraction of soft tissues during the exposure and especially the femoral work as this is a vital part of the procedure to prevent complications and fractures. The PE was also vital and protecting soft tissues during times of bony cuts and reaming. He also played a vital role in closure with my direct supervision. The PE was also important during reduction and dislocation of the joint and trials intraoperatively. Surgical Findings: Stable hip with equal leg lengths Complications Complications: No Admit VTE Documentation VTE Present on Admission: Yes VTE Mechan Device Prophylaxis: SCD's and Thigh High DENIS Hose VTE Pharm Prophylaxis ordered?: Yes
--- NOTE | 2025-08-17 16:14 | PCM.POST.ANE ---
Anesthesia: Postop Eval I Current Vital Signs Temperature: 110 F Pulse Rate: 110 Blood Pressure: 153/97 Respiratory Rate: 16 Pulse Ox: 99 Assessment Airway patent: Yes Spontaneous unlabored respirations: Yes nausea: No Vomiting: No Anesthesia Complication: No Fluid Hydration Crystalloid volume administer (ml): 600 Total IV fluid infused: 600 Progress Note Anesthesia document: Postop Eval 1 completed: No
--- NOTE | 2025-08-17 16:15 | PCM.POSTANE2 ---
Anesthesia Postop Eval I Sum Postop Eval Completion status Anesthesia document: Postop Eval 1 completed: No Anesthesia Postop Eval I Summary Anesthesia Postop Eval I Summary: Anesthesia Postop Eval I: Assessment Summary Airway patent Yes 08/17/25 16:14 Spontaneous unlabored Yes 08/17/25 16:14 respirations Mental status nausea No 08/17/25 16:14 Vomiting No 08/17/25 16:14 Anesthesia Postop Eval I: Fluid Summary Crystalloid volume administer 600 08/17/25 16:14 (ml) Colloids volume administered ( ml) Blood Product volume administered (ml) Total IV fluid infused 600 08/17/25 16:14 Anesthesia Postop Eval I: Summary Notes Anesthesia Complication No 08/17/25 16:14 Anesthesia Complication Comment: Post-operative progress note Anesthesia: Postop Eval II Evaluation Mental status: Awake Pain Level: 0 nausea: No Vomiting: No
--- NOTE | 2025-08-17 16:35 | RAD_ITS ---
PROCEDURE: HIP MIN 2 VIEWS (PORTABLE) 08/17/2025 REASON FOR EXAM: POST OP TECHNIQUE: Procedure Code: RADH_P Modality: DX Procedure: HIP MIN 2 VIEWS (PORTABLE) Laterality: Right COMPARISON: August 16, 2025 FINDINGS: Bones: Right hip replacement is present. Joints: Anatomic alignment Soft tissues: Expected gas in the soft tissues lateral to the right hip. Other: No foreign body. RAD/Hip Min 2 Views (Portable) IMPRESSION: Anatomic alignment status post hip replacement. Reading Location: [id number]
[2025-08-17] MEDS: Ensure Surgery 237 ML LIQUID PO (17:41)
[2025-08-17] MEDS: Potassium Chloride Oral Tablet 20 MEQ 40 MEQ PO (18:38)
[2025-08-17] MEDS: Sodium Ferric Gluconat/Sucrose 250 MG in 0.9% Normal Saline (250mL Bag) 250 ML 135 MG IV (18:47)
[2025-08-17] MEDS: 0.9% Normal Saline (250mL Bag) 250 ML 15 ML IV (18:48)
[2025-08-17] MEDS: Senna/Docusate Sodium 1 Tablet 2 TABLET PO (21:50)
[2025-08-17] MEDS: Clindamycin 600 MG/50 ML BAG 100 MG IV (21:50)
[2025-08-18] VITALS (7 sets, daily range): BP systolic 108–142; BP diastolic 53–63; PULSE 79–103; RESP 15–18; TEMP 37.6–38.2; O2SAT 93–98; BMI 20.1
[2025-08-18] MEDS: Clindamycin 600 MG/50 ML BAG 100 MG IV ×2 (03:39→08:18)
[2025-08-18 04:00] LABS: Hematocrit 30.7 % (37-47); Hemoglobin 8.5 g/dL (12.0-15.0); Immature Granulocytes Count 0.040 X10^3/uL (0.0-0.0); Mean Corp Hgb Conc 27.7 g/dL (32-36); Mean Corpuscular Volume 76.8 fL (81-99); Mean Platelet Vol. 9.9 fl (6.2-12.0); NRBC Flagged by Analyzer 0 % (0-5); POSITIVE DIFFERENTIAL YES; Platelet Count 274 K/mm3 (150-450); RBC Distribution Width CV 15.7 % (11.6-14.6); RBC Distribution Width SD 44.2 fl (35.1-43.9); Red Blood Count 4.00 M/mm3 (4.2-5.4); White Blood Count 9.4 K/mm3 (4.4-11.0)
[2025-08-18 04:53] LABS: Anion Gap 8 (5-15); BUN 15 mg/dL (4-19); BUN/Creat Ratio 27.2 RATIO (10-20); Calcium,Total 8.1 mg/dL (7.6-11.0); Carbon Dioxide 27.3 mmol/L (21.0-32.0); Chloride 103 mmol/L (98-108); Estimated Creatinine Clearance 51.01 ml/min (50-250); Glucose 118 mg/dL (70-99); Potassium 3.6 mmol/L (3.3-5.1)
[2025-08-18] MEDS: Sodium Chloride 15ML DROPS 2 DRP OPHTHALMIC ×3 (06:43→21:45)
--- NOTE | 2025-08-18 07:55 | PN.ORTHO_ITS ---
Subjective Subjective Patient doing well this morning. No acute events overnight. Pain controlled at this time with oxycodone and acetaminophen. Patient notes she has been up with a walker. Objective Data Objective Data Vital Signs: Vital Signs Temp Pulse Resp BP Pulse Ox O2 Del Method O2 Flow Rate 100.1 F H 101 H 18 122/60 H 98 Nasal Cannula 2 08/18/25 01:19 08/18/25 01:19 08/18/25 01:19 08/18/25 01:19 08/18/25 01:19 08/18/25 01:19 08/18/25 01:19 Oxygen Flow Rate (L/min) 2 Oxygen Delivery Method Nasal Cannula Weight: 113 lb 8.609 oz Body Mass Index (BMI) 20.1 Intake & Output: Intake and Output for Last 24 Hours 08/16/25 08/17/25 08/18/25 23:59 23:59 23:59 Intake Total 1620 / 1920 550 / 550 Output Total 800 / 800 Balance 820 / 1120 550 / 550 Lab / Micro Data 08/18/25 03:25 08/18/25 03:25 Labs: Laboratory Results - last 24 hr 08/18/25 03:25: WBC 9.4, RBC 4.00 L, Hgb 8.5 L, Hct 30.7 L, MCV 76.8 L, MCH 21.3 L, MCHC 27.7 L D, RDW Std Deviation 44.2 H, RDW Coeff of Oli 15.7 H, Plt Count 274, MPV 9.9, Immature Gran % (Auto) 0.400, Neut % (Auto) 81.4 H, Lymph % (Auto) 6.0 L, Dickens % (Auto) 10.8 H, Eos % (Auto) 0.7, Baso % (Auto) 0.7, Absolute Neuts (auto) 7.6, Absolute Lymphs (auto) 0.56 L, Nucleated RBC % 0, Sodium 139, Potassium 3.6, Chloride 103, Carbon Dioxide 27.3, Anion Gap 8, BUN 15, C reatinine 0.55 L, Estim Creat Clear Calc 51.01, Est GFR (MDRD) Non-Af 98, B UN/Creatinine Ratio 27.2 H, Glucose 118 H, Calcium 8.1 Radiography Diagnostic Testing: Radiology Impression Hip X-Ray 08/17/25 15:09 IMPRESSION: Intraoperative localization. Correlate with procedural note. Reading Location: [facility] Hip X-Ray 08/17/25 16:35 IMPRESSION: Anatomic alignment status post hip replacement. Reading Location: [id number] Independently reviewed showing stable total hip replacement postoperatively. Physical Exam Const alert, oriented x3 and no apparent distress Assessment & Plan Assessment/Plan (1) Subcapital fracture of right hip: PLAN: Postop day 1 right total hip replacement 1. Pain control: Per primary service controlled on Tylenol and oxycodone will assume pain control regimen upon discharge 2. DVT prophylaxis: Recommend aspirin 81 mg p.o. twice daily for 4 weeks postoperatively upon discharge 3. Therapy: Weightbearing as tolerated, anterior hip precautions 4. Constipation: Discussed with patient need for Senokot, MiraLAX and warm prune juice upon discharge until regular bowel movements are obtained 5. Incentive spirometry: Discussed the potential for atelectasis if not participating regularly incentive spirometry. Continue to encourage upon discharge. 6. Disposition: Patient is orthopedically stable at this time. She does live in [facility] I did discuss with her the option of continuing to follow-up with me however if she wishes to follow-up closer to home she was instructed to let us know. She will need to follow-up with me in the office in 2 weeks or close to home in 2 weeks. Patient understands she needs 4 weeks of baby aspirin twice a day. We discussed symptoms of blood clots and she was instructed to return to the emergency department meant if she has shortness of breath or calf pain as well as call her office as she is distant. Finally we discussed constipation and postoperative fevers and need for regular stool softeners until bowel movements are regular and incentive spirometry postoperatively. Patient demonstrates understanding. Please call orthopedics if there is any further questions or concerns. Based on patient's preoperative function she will likely be ready for discharge to home when discharged from the hospital. [facility] Office: (2) Anemia: PLAN: Vitals are stableWould only transfusion if patient becomes symptomatic (3) Hypertension: PLAN: Per primary service for management
--- NOTE | 2025-08-18 08:03 | DCINST_ITS ---
Discharge Instructions DC O2, CPAP, BIPAP needs Home O2 Discharge instructions: No Dressing / Incision Discharge Activity: May Not Drive (while taking narcotic pain medications.) May shower in (days): 1 Ice area for (Minutes): 20 Weight Bearing Status: Weight bearing as tolerated Additional Activity Instructions:: Wear elastic stockings for 2 weeks. DO NOT use alcohol with narcotic pain medication. DO NOT make important decisions while taking narcotic medication. If you have problems with taking your medication (rash, itching, nausea, etc.) call the office at once. Dressing / Incision Call your doctor if your incision/area has: Increased Redness and Foul Smelling Discharge Call your doctor if you observe: Fever of 101 or Higher Remove Dressing in: 5 days Additional Dressing/Incision Instructions:: If incision is clean dry and intact may leave the wound open to air and continue showering. If there is continued drainage continue daily dry dressing changes and keep incision clean dry and intact until there is no drainage. Follow Up Care Please Follow Up With: Uzair Duque PA-C When: 2 weeks post op Test Results: Test results from this visit will be discussed in further detail at your follow- up appointment, if applicable. Discharge Plan Admission Admit Date/Time: 08/16/25 20:03 Attending Provider: Zack Hurtado Primary Care Provider: Care Physician,Shania Primary Consulting Providers: Armando Deras; Lexie Byrd Discharge Orders/Prescriptions Prescriptions: No Action multivitamin [Daily Multi-Vitamin] Tablet 1 tab PO DAILY cyanocobalamin (vitamin B-12) [Vitamin B-12] 1 cap PO DAILY magnesium-potassium 99-90 mg capsule 1 cap PO DAILY perservation 2 drp ophthalmic (eye) TID Referrals / Follow Up: Care Physician,No Primary [Primary Care Provider, Medical]
[2025-08-18] MEDS: Senna/Docusate Sodium 1 Tablet 2 TABLET PO ×2 (08:17→21:45)
[2025-08-18] MEDS: Potassium Chloride Oral Tablet 20 MEQ 40 MEQ PO (08:18)
[2025-08-18] MEDS: Ensure Surgery 237 ML LIQUID PO (08:18)
--- NOTE | 2025-08-18 11:18 | PN.HOSP_ITS ---
Reason for Visit Chief Complaint: R hip pain s/p fall. Objective Data Objective Data Vital Signs: Vital Signs Temp Pulse Resp BP Pulse Ox O2 Del Method O2 Flow Rate 99.7 F H 90 15 130/54 H 97 Nasal Cannula 2 08/18/25 08:05 08/18/25 08:05 08/18/25 08:05 08/18/25 08:05 08/18/25 08:05 08/18/25 08:05 08/18/25 08:05 Oxygen Flow Rate (L/min) 2 Oxygen Delivery Method Nasal Cannula Weight: 113 lb 8.609 oz Body Mass Index (BMI) 20.1 Intake & Output: Intake and Output for Last 24 Hours 08/16/25 08/17/25 08/18/25 23:59 23:59 23:59 Intake Total 1620 / 1920 810.5 / 810.5 Output Total 800 / 800 Balance 820 / 1120 810.5 / 810.5 Lab / Micro Data 08/18/25 03:25 08/18/25 03:25 Labs: Laboratory Results - last 24 hr 08/18/25 03:25: WBC 9.4, RBC 4.00 L, Hgb 8.5 L, Hct 30.7 L, MCV 76.8 L, MCH 21.3 L, MCHC 27.7 L D, RDW Std Deviation 44.2 H, RDW Coeff of Oli 15.7 H, Plt Count 274, MPV 9.9, Immature Gran % (Auto) 0.400, Neut % (Auto) 81.4 H, Lymph % (Auto) 6.0 L, [place] % (Auto) 10.8 H, Eos % (Auto) 0.7, Baso % (Auto) 0.7, Absolute Neuts (auto) 7.6, Absolute Lymphs (auto) 0.56 L, Nucleated RBC % 0, Sodium 139, Potassium 3.6, Chloride 103, Carbon Dioxide 27.3, Anion Gap 8, BUN 15, C reatinine 0.55 L, Estim Creat Clear Calc 51.01, Est GFR (MDRD) Non-Af 98, B UN/Creatinine Ratio 27.2 H, Glucose 118 H, Calcium 8.1 Radiography Diagnostic Testing: Radiology Impression Hip X-Ray 08/17/25 15:09 IMPRESSION: Intraoperative localization. Correlate with procedural note. Reading Location: [facility] Hip X-Ray 08/17/25 16:35 IMPRESSION: Anatomic alignment status post hip replacement. Reading Location: [facility] Physical Exam Narrative Seen and examined. Patient had right hip surgery yesterday. Patient up and walking on the walker to the bathroom. Pain is controlled. Had BM yesterday Physical exam General: Alert, Oriented x3, Cooperative. BMI 20.2 kg/m? HEENT: Atraumatic, PERRLA, EOMI, Normocephalic. Oral: No Gingival or Mucosal Lesions/ Ulcerations Neck: Supple, No JVD, Negative Carotid Bruits Chest wall/Lungs: Air entry diminished in bilateral lung bases. No crepitation/rhonchi Cardiovascular: Regular rate and rhythm, Normal S1,S2, No M/G/R Abdomen: Bowel Sounds Present, Soft, Non Tender, Non-Distended : No dysuria. No renal angle tenderness. No suprapubic tenderness. Extremities: No edema, Capillary Refill Less than 3 Seconds Skin: Surgical dressing is dry intact and clean. Musculoskeletal: Right anterior hip hemiarthroplasty. Neurological: Cranial nerves II-XII grossly intact, DTR 2+/4. No acute focal neurological deficit. Psych/Mental Status: Flat affect Assessment & Plan Assessment/Plan (1) Closed right hip fracture: PLAN: Plan The patient is a 70 y/o M after tripped and fell over a curb while shopping at [facility] with unfortunately onset significant right hip pain and debility prompting EMS and transition to the ED for evaluation. #1. Acute debility due to right hip pain from right hip subcapital displaced femoral neck fracture with moderate primary osteoarthritis: Orthopedic surgery consulted from ED. patient is being admitted on MedSur floor. Pain control. PT and OT ordered. Supportive medication for nausea and vomiting. barber shop manager consulted. As per NSQIP criteria, patient low to moderate risk for perioperative cardiac events. Denies chronic heart disease or lung disease. 08/18: Patient had right hip direct anterior total replacement for right hip subcapital displaced femoral neck fracture with moderate primary osteoarthritis. Patient out of bed and walking to bathroom on walker. Seen by orthopedic surgeon. On baby aspirin 81 mg twice daily for DVT prophylaxis. Pain is controlled. Continue PT and OT. #2. Elevated BP without hypertensive diagnosis: Patient denies any history of hypertensive history, elevated BP in the ED, likely pain related as well as anxiety, will have as needed as needed hydralazine. 08/18: Blood pressure is controlled 130/54. #3. Hypokalemia: Admission K+ 3.2, repeat potassium is 3.3. Continue replace potassium. Serum magnesium normal 1.9. 08/18: Labs shows potassium 3.6. #4. Chronic microcytic anemia: Admission hemoglobin 10, MCV 76, iron profile shows low iron, TIBC high iron saturation 2.9%. Unsaturated IBC high 442 and ferritin is low therefore consistent with iron deficiency anemia. Stool for occult blood ordered. IV iron ordered. Repeat H&H 9.2/31%. Monitor CBC 07/19: H&H 8.5/30.7, decreased from 10/35%. Patient had 1 dose of IV iron yesterday. 1 more dose ordered today. #5. Rheumatoid arthritis, psoriatic arthritis: Noted rheumatological disease history, notes managed without medications, encourage follow-up with rheumatology as previously arranged or as needed. #6. Tobacco Abuse: Patient smokes less than 10 cigarettes/day. Nicotine patch ordered. Encouraged cessation #7. Anxiety/panic attacks: as needed hydroxyzine, is ordered. #8. DVT prophylaxis: SCDs, as patient has high reminiscence anemia with low H&H therefore agree with baby aspirin 81 mg twice daily as during prophylaxis #9. CODE status: Patient does not have the [facility] 5 banking attorney or living [address] but she notes her significant who she lives with would be here Medical Decision Making necessary. Discussed CODE status at length including difference between FULL code, DNR-CCA and DNR-CC status. Full code Charges/Coding Visit Charges Inpatient E&M: 88714 Subs Hosp L2
[2025-08-18] MEDS: Sodium Ferric Gluconat/Sucrose 250 MG in 0.9% Normal Saline (250mL Bag) 250 ML 135 MG IV (11:55)
[2025-08-19] VITALS (7 sets, daily range): BP systolic 110–163; BP diastolic 55–91; PULSE 79–96; RESP 14–18; TEMP 37.6–38.4; O2SAT 92–100; BMI 18.6
--- NOTE | 2025-08-19 04:10 | PCM.HOSP.N ---
Hospitalist Note Patient with onset of fever, unclear source, will obtain UA, UCx, CXR.
--- NOTE | 2025-08-19 04:20 | RAD_ITS ---
PROCEDURE: CHEST 1 VIEW (PORTABLE) 08/19/2025 REASON FOR EXAM: FEVER TECHNIQUE: Frontal view of the chest. COMPARISON: August 16, 2025 FINDINGS: There is mild cardiomegaly with permanent central vascular markings with rapid tapering, which can indicate pulmonary hypertension. There is no focal infiltrate or consolidation. There is no pneumothorax or effusion. Levoscoliosis of the lumbar region is noted. Aortic calcifications are visible. RAD/Chest 1 View (Portable) IMPRESSION: There is mild cardiomegaly with permanent central vascular markings with rapid tapering, which can indicate pulmonary hypertension. There is no focal infiltrate or consolidation. Reading Location: [facility]
[2025-08-19 06:40] LABS: Hematocrit 27.4 % (37-47); Hemoglobin 7.8 g/dL (12.0-15.0); Immature Granulocytes Count 0.050 X10^3/uL (0.0-0.0); Mean Corp Hgb Conc 28.5 g/dL (32-36); Mean Corpuscular Volume 76.3 fL (81-99); Mean Platelet Vol. 10.0 fl (6.2-12.0); NRBC Flagged by Analyzer 0 % (0-5); Platelet Count 241 K/mm3 (150-450); RBC Distribution Width CV 16.0 % (11.6-14.6); RBC Distribution Width SD 44.5 fl (35.1-43.9); Red Blood Count 3.59 M/mm3 (4.2-5.4); White Blood Count 10.0 K/mm3 (4.4-11.0)
[2025-08-19] MEDS: Sodium Chloride 15ML DROPS 2 DRP OPHTHALMIC ×3 (06:46→22:39)
[2025-08-19 07:02] LABS: Anion Gap 8 (5-15); BUN 23 mg/dL (4-19); BUN/Creat Ratio 32.4 RATIO (10-20); Calcium,Total 8.3 mg/dL (7.6-11.0); Carbon Dioxide 25.5 mmol/L (21.0-32.0); Chloride 103 mmol/L (98-108); Estimated Creatinine Clearance 51.01 ml/min (50-250); Glucose 115 mg/dL (70-99); Potassium 3.8 mmol/L (3.3-5.1)
[2025-08-19] MEDS: Potassium Chloride Oral Tablet 20 MEQ 40 MEQ PO (08:30)
[2025-08-19] MEDS: Senna/Docusate Sodium 1 Tablet 2 TABLET PO ×2 (08:31→22:39)
--- NOTE | 2025-08-19 11:45 | PCM.PN.HOSP ---
Reason for Visit Chief Complaint: R hip pain s/p fall. Objective Data Objective Data Vital Signs: Vital Signs Temp Pulse Resp BP Pulse Ox O2 Del Method O2 Flow Rate 100.1 F H 96 14 133/65 H 93 Room Air 2 08/19/25 09:45 08/19/25 09:45 08/19/25 09:45 08/19/25 09:45 08/19/25 09:45 08/19/25 09:45 08/18/25 12:25 Oxygen Flow Rate (L/min) 2 Oxygen Delivery Method Room Air Weight: 113 lb 8.609 oz Body Mass Index (BMI) 20.1 Intake & Output: Intake and Output for Last 24 Hours 08/17/25 08/18/25 08/19/25 23:59 23:59 23:59 Intake Total 1620 / 1920 3025.75 / 3025.75 300 / 300 Output Total 800 / 800 Balance 820 / 1120 3025.75 / 3025.75 300 / 300 Lab / Micro Data 08/19/25 06:10 08/19/25 06:10 Labs: Laboratory Results - last 24 hr 08/19/25 06:10: WBC 10.0, RBC 3.59 L, Hgb 7.8 L, Hct 27.4 L, MCV 76.3 L, MCH 21.7 L, MCHC 28.5 L, RDW Std Deviation 44.5 H, RDW Coeff of Oli 16.0 H, Plt Count 241, MPV 10.0, Immature Gran % (Auto) 0.500, Neut % (Auto) 77.2 H, Lymph % (Auto) 7.4 L, [place] % (Auto) 11.9 H, Eos % (Auto) 2.3, Baso % (Auto) 0.7, Absolute Neuts (auto) 7.7, Absolute Lymphs (auto) 0.74 L, Nucleated RBC % 0, Sodium 137, Potassium 3.8, Chloride 103, Carbon Dioxide 25.5, Anion Gap 8, BUN 23 H, Creatinine 0.71, Estim Creat Clear Calc 51.01, Est GFR (MDRD) Non-Af 91, BUN/Creatinine Ratio 32.4 H, Glucose 115 H, Calcium 8.3 Micro: Microbiology 08/19/25 05:05 Mucosa - Nasopharyngeal SARS-CoV-2, Influenza & RSV (PCR) - Final Radiography Diagnostic Testing: Radiology Impression Chest X-Ray 08/19/25 04:20 IMPRESSION: There is mild cardiomegaly with permanent central vascular markings with rapid tapering, which can indicate pulmonary hypertension. There is no focal infiltrate or consolidation. Reading Location: [facility] Physical Exam Narrative Seen and examined. Patient having fever, low-grade Tmax 100.7 Fahrenheit. She had a Mejía catheter which was removed. Patient had right hip surgery on 08/17. Patient up and walking on the walker to the bathroom. Pain is controlled. Had BM yesterday Physical exam General: Alert, Oriented x3, Cooperative. BMI 20.2 kg/m? HEENT: Atraumatic, PERRLA, EOMI, Normocephalic. Oral: No Gingival or Mucosal Lesions/ Ulcerations Neck: Supple, No JVD, Negative Carotid Bruits Chest wall/Lungs: Air entry diminished in bilateral lung bases. No crepitation/rhonchi Cardiovascular: Regular rate and rhythm, Normal S1,S2, No M/G/R Abdomen: Bowel Sounds Present, Soft, Non Tender, Non-Distended : No dysuria. No renal angle tenderness. No suprapubic tenderness. Extremities: No edema, Capillary Refill Less than 3 Seconds Skin: Surgical dressing is dry intact and clean. Musculoskeletal: Right anterior hip hemiarthroplasty. Neurological: Cranial nerves II-XII grossly intact, DTR 2+/4. No acute focal neurological deficit. Psych/Mental Status: Flat affect Assessment & Plan Assessment/Plan (1) Closed right hip fracture: PLAN: Plan The patient is a 70 y/o M after tripped and fell over a curb while shopping at [employer] with unfortunately onset significant right hip pain and debility prompting EMS and transition to the ED for evaluation. #1. Acute debility due to right hip pain from right hip subcapital displaced femoral neck fracture with moderate primary osteoarthritis: Orthopedic surgery consulted from ED. patient is being admitted on MedSur floor. Pain control. PT and OT ordered. Supportive medication for nausea and vomiting. bankruptcy manager consulted. As per NSQIP criteria, patient low to moderate risk for perioperative cardiac events. Denies chronic heart disease or lung disease. 08/18: Patient had right hip direct anterior total replacement for right hip subcapital displaced femoral neck fracture with moderate primary osteoarthritis. Patient out of bed and walking to bathroom on walker. Seen by orthopedic surgeon. On baby aspirin 81 mg twice daily for DVT prophylaxis. Pain is controlled. Continue PT and OT. 08/19: Patient is up and moving. Patient having fever Tmax 100.7 Fahrenheit since yesterday night. Denies burning micturition. UA with reflex urine culture ordered. Patient had chest x-ray which does not show any acute consolidation. Suspected possible UTI. No leukocytosis urine. Empirically started on IV aztreonam with anaphylactic allergy to penicillin #2. Elevated BP without hypertensive diagnosis: Patient denies any history of hypertensive history, elevated BP in the ED, likely pain related as well as anxiety, will have as needed as needed hydralazine. 08/18: Blood pressure is controlled 130/54. #3. Hypokalemia: Admission K+ 3.2, repeat potassium is 3.3. Continue replace potassium. Serum magnesium normal 1.9. 08/18: Labs shows potassium 3.6. #4. Chronic microcytic anemia: Admission hemoglobin 10, MCV 76, iron profile shows low iron, TIBC high iron saturation 2.9%. Unsaturated IBC high 442 and ferritin is low therefore consistent with iron deficiency anemia. Stool for occult blood ordered. IV iron ordered. Repeat H&H 9.2/31%. Monitor CBC 07/19: H&H 8.5/30.7, decreased from 10/35%. Patient had 1 dose of IV iron yesterday. 1 more dose ordered today. #5. Rheumatoid arthritis, psoriatic arthritis: Noted rheumatological disease history, notes managed without medications, encourage follow-up with rheumatology as previously arranged or as needed. #6. Tobacco Abuse: Patient smokes less than 10 cigarettes/day. Nicotine patch ordered. Encouraged cessation #7. Anxiety/panic attacks: as needed hydroxyzine, is ordered. #8. DVT prophylaxis: SCDs, as patient has high reminiscence anemia with low H&H therefore agree with baby aspirin 81 mg twice daily as during prophylaxis #9. CODE status: Patient does not have [facility] 5 attorney at law or living [address] place but she notes her significant who she lives with would be here Medical Decision Making necessary. Discussed CODE status at length including difference between FULL code, DNR-CCA and DNR-CC status. Full code Charges/Coding Visit Charges Inpatient E&M: 81901 Subs Hosp L2
[2025-08-19 12:04] LABS: Red Blood Cells-Urine 0 SEEN /hpf (0-5); Squamous Epithelial Cells - UA 0 SEEN /hpf (5-10)
[2025-08-19 12:13] LABS: Color, Urine Yellow (Yellow); Glucose, Dipstick Normal (Normal); Ketone-Dipstick Negative (Negative); Leukocyte Esterase-Dipstick 25 /ul (Negative); Nitrite-Dipstick Negative (Negative); Occult Blood-Urine 25 /ul (Negative); Protein-Dipstick 30 mg/dl (Negative); Specific Gravity, Urine 1.020 (1.002-1.030); Urine Bilirubin Dipstick Negative (Negative)
[2025-08-19] MEDS: Aztreonam 1 GM 1 GM in 0.9% Normal Saline (50mL MB+) 50 ML IV ×2 (12:22→20:59)
[2025-08-19 12:24] LABS: Mucous, Urine 1+ /hpf (<or=2+)
[2025-08-19 15:03] LABS: CRP 127.00 mg/L (0.0-3.0)
--- NOTE | 2025-08-19 15:42 | CASEMGMT ---
JUAN JOSE CM into pt room, pt sitting up in chair. Pt states she is going to borrow a FWW and does not need one. Discussed setting pt up for therapy, pt declined need. She states she will set this up with HHC when she gets back home. Pt has a PCP appt in September to establish care. Pt is aware that she likely will not be able to get HHC until she has this appt. Offered to provide her a list of [employer] in her area, pt declined.
[2025-08-20 05:00] VITALS: BP 120/63; PULSE 92; RESP 18; TEMP 37.9; O2SAT 92
[2025-08-20] MEDS: Aztreonam 1 GM 1 GM in 0.9% Normal Saline (50mL MB+) 50 ML IV (05:05)
[2025-08-20] MEDS: Sodium Chloride 15ML DROPS 2 DRP OPHTHALMIC (05:06)
[2025-08-20 05:15] VITALS: BMI 19.7
[2025-08-20 07:15] LABS: Hematocrit 27.0 % (37-47); Hemoglobin 7.5 g/dL (12.0-15.0); Immature Granulocytes Count 0.050 X10^3/uL (0.0-0.0); Mean Corp Hgb Conc 27.8 g/dL (32-36); Mean Corpuscular Volume 75.6 fL (81-99); Mean Platelet Vol. 10.3 fl (6.2-12.0); NRBC Flagged by Analyzer 0 % (0-5); Platelet Count 260 K/mm3 (150-450); RBC Distribution Width CV 15.9 % (11.6-14.6); RBC Distribution Width SD 43.9 fl (35.1-43.9); Red Blood Count 3.57 M/mm3 (4.2-5.4); White Blood Count 8.5 K/mm3 (4.4-11.0)
[2025-08-20 07:40] VITALS: BP 138/77; PULSE 84; RESP 13; TEMP 37.2; O2SAT 93
[2025-08-20 07:48] LABS: AST(SGOT) 22 U/L (<=31); Alanine Aminotransfer ALT/SGPT 12 U/L (<=34); Albumin, Serum 3.0 g/dL (3.4-4.8); Alkaline Phosphatase 77 U/L (35-104); Anion Gap 7 (5-15); BUN 21 mg/dL (4-19); BUN/Creat Ratio 39.7 RATIO (10-20); Calcium,Total 8.5 mg/dL (7.6-11.0); Carbon Dioxide 26.9 mmol/L (21.0-32.0); Chloride 104 mmol/L (98-108); Estimated Creatinine Clearance 51.01 ml/min (50-250); Globulin 2.5 g/dL (2.2-4.2); Glucose 109 mg/dL (70-99); Potassium 3.9 mmol/L (3.3-5.1)
--- NOTE | 2025-08-20 10:28 | PCM.CONS.GEN ---
Assessment & Plan Assessment/Plan (1) Fever: PLAN: Asymptomatic post-op fever - UA neg, cxr clear, no focal signs/symptoms. Ok to stop abx and monitor. Will follow, thank you, d/w Dr. Hurtado (2) Subcapital fracture of right hip: HPI Consult Data Date of Consult: 08/20/25 HPI Narrative Reason for Consultation: fever HPI Narrative: JAYLYN EASTMAN, is a 70 F with h/o RA and psoriatic arthritis, not on immunosuppressants, presented 08/16 to ED after fall and moderate pain R hip. Found to have fracture, taken to OR 08/17/[address] Deras for R HÉCTOR. Post op, has had asymptomatic fever. Started on aztreonam. No headache, no cough, no n/v/d, no rash, no diarrhea. Feeling fine. Reports tongue swelling with IM PCN in the 1960s, no beta lactams since. Full ROS performed and neg except as noted above. [facility] Medical History Macula lutea degeneration Cataract Scoliosis Restless leg syndrome Panic attacks Anxiety Tobacco use Psoriatic arthritis Rheumatoid arthritis Fibromyalgia Home Medications ?Medication ?Instructions ?Recorded ?Last Taken ?Type cyanocobalamin (vitamin B-12) 1 cap PO DAILY 08/16/25 Unknown History magnesium-potassium 99 mg- 90 mg 1 cap PO DAILY 08/16/25 Unknown History capsule multivitamin (Daily Multi-Vitamin 1 tab PO DAILY 08/16/25 Unknown History tablet) perservation 2 drp ophthalmic (eye) TID eyes 08/16/25 Unknown History Allergy/AdvReac Type Severity Reaction Status Date / Time Penicillins (PCN) Allergy Severe Anaphylaxis Verified 08/16/25 18:41 codeine AdvReac Intermediate HEADACHE Verified 08/16/25 18:41 Family History Mother Alcohol abuse Alcoholic cirrhosis of liver Father Alcohol abuse Diabetes Alcoholic pancreatitis Surgical History History of tonsillectomy and adenoidectomy Social History household members: significant other Smoking Status: Light Smoker (<10/day) alcohol intake: current alcohol intake frequency: holidays/special occasions only substance use type: does not use Physical Exam Const alert, oriented x3 and no apparent distress General Appearance: cooperative HEENT normocephalic and head/scalp atraumatic Eyes PERRL and EOMs intact bilaterally Neck supple and No nodes Resp normal air movement and clear to auscultation bilaterally Cardio regular rate, regular rhythm and no murmurs GI soft to palpation, non-tender and non-distended Extremity General Extremity: Negative for edema Skin no rashes or lesions noted Skin Narrative: R hip surg dressing in place, no surrounding redness Neuro CN's II-XII intact bilaterally Lab / Micro Data Attestation: I reviewed the patient's lab results. 08/20/25 06:42 08/20/25 06:42 Labs: Laboratory Results - last 24 hr 08/19/25 06:10: ESR 32 H, C-React Prot Ext Range 127.00 H 08/19/25 11:55: Urine Color Yellow, Urine Clarity Clear, Urine pH 6.0, Ur Specific [place] 1.020, Urine Protein 30 H, Urine Glucose (UA) Normal, Urine Ketones Negative, Urine Occult Blood 25 H, Urine Nitrite Negative, Urine Bilirubin Negative, Urine Urobilinogen Normal, Ur Leukocyte Esterase 25 H, Urine RBC 0 SEEN, Urine WBC 0-5 SEEN, Ur Squamous Epith Cells 0 SEEN, Urine Bacteria Not Reportable, Urine Mucus 1+ 08/20/25 06:42: WBC 8.5, RBC 3.57 L, Hgb 7.5 L, Hct 27.0 L, MCV 75.6 L, MCH 21.0 L, MCHC 27.8 L, RDW Std Deviation 43.9, RDW Coeff of Oli 15.9 H, Plt Count 260, MPV 10.3, Immature Gran % (Auto) 0.600, Neut % (Auto) 69.9, Lymph % (Auto) 11.9 L, [place] % (Auto) 12.5 H, Eos % (Auto) 4.4, Baso % (Auto) 0.7, Absolute Neuts (auto) 5.9, Absolute Lymphs (auto) 1.01, Nucleated RBC % 0, Sodium 138, Potassium 3.9, Chloride 104, Carbon Dioxide 26.9, Anion Gap 7, BUN 21 H, Creatinine 0.53 L, Estim Creat Clear Calc 51.01, Est GFR (MDRD) Non-Af 99, BUN/Creatinine Ratio 39.7 H, Glucose 109 H, Calcium 8.5, Total Bilirubin 0.53, AST 22, ALT 12, Alkaline Phosphatase 77, Total Protein 5.5 L, Albumin 3.0 L, Globulin 2.5, Albumin/Globulin Ratio 1.2 Micro: Microbiology 08/19/25 05:05 Mucosa - Nasopharyngeal SARS-CoV-2, Influenza & RSV (PCR) - Final
--- NOTE | 2025-08-20 10:32 | DCINST_ITS ---
Discharge Instructions DC O2, CPAP, BIPAP needs Home O2 Discharge instructions: No Dressing / Incision May shower in (days): 1 Ice area for (Minutes): 20 Weight Bearing Status: Weight bearing as tolerated Additional Activity Instructions:: Wear elastic stockings for 2 weeks. DO NOT use alcohol with narcotic pain medication. DO NOT make important decisions while taking narcotic medication. If you have problems with taking your medication (rash, itching, nausea, etc.) call the office at once. Dressing / Incision Call your doctor if your incision/area has: Increased Redness and Foul Smelling Discharge Call your doctor if you observe: Fever of 101 or Higher Additional Dressing/Incision Instructions:: If incision is clean dry and intact may leave the wound open to air and continue showering. If there is continued drainage continue daily dry dressing changes and keep incision clean dry and intact until there is no drainage. Follow Up Care Please Follow Up With: Uzair Dquue PA-C Test Results: Test results from this visit will be discussed in further detail at your follow- up appointment, if applicable. Discharge Plan Admission Admit Date/Time: 08/16/25 20:03 Primary Reason for Your Visit: Right hip subcapital displaced femoral neck fracture Attending Provider: Zack Hurtado Primary Care Provider: Care Physician,No Primary Consulting Providers: Armando Deras; Lexie Byrd; Charlie Philip Discharge Orders/Prescriptions Prescriptions: New aspirin 81 mg Tablet,Chewable 81 mg PO BIDCM 30 Days Qty: 60 0RF sennosides-docusate sodium [Stimulant Laxative Plus] 8.6-50 mg Tablet 2 tab PO BID Qty: 0 0RF oxycodone 5 mg Tablet 2.5 - 5 mg PO Q4H PRN PRN (Reason: Pain Score 4-10) 3 Days Qty: 7 0RF pantoprazole [Protonix] 40 mg tablet,delayed release (DR/EC) 40 mg PO DAILY 30 Days Qty: 30 2RF ascorbic acid (vitamin C) 1,000 mg tablet 1,000 mg PO DAILY 30 Days Qty: 30 2RF chlorthalidone 25 mg tablet 12.5 mg PO DAILY Qty: 30 3RF Rx Instructions: Hold if serum sodium is less than 130 mg/dL ferrous sulfate [FeroSul] 325 mg (65 mg iron) tablet 325 mg PO DAILY 30 Days Qty: 30 2RF Continued multivitamin [Daily Multi-Vitamin] Tablet 1 tab PO DAILY cyanocobalamin (vitamin B-12) [Vitamin B-12] 1 cap PO DAILY magnesium-potassium 99-90 mg capsule 1 cap PO DAILY perservation 2 drp ophthalmic (eye) TID Referrals / Follow Up: Armando Deras MD [Med Staff - Active Staff, Orthopedics] - Within 2 Weeks Care Physician,No Primary [Primary Care Provider, Medical] Disposition Disposition (needs filled in before D/C Order can be placed): Home, Self Care
--- NOTE | 2025-08-20 11:27 | DS.PCM_ITS ---
Providers Date of Admission: 08/16/25 Date of Discharge: 08/20/25 Primary Care Physician: Shania Primary Care Phys Consultations 08/16/25 21:11 Consult: Orthopedics Routine Consulting Provider: Armando Deras Reason for Consult: Fall, R hip fracture EMERGENT Consult: No Notified: Yes Date Notified: 08/16/25 Time Notified: 20:04 Method of Notification: ED Physician Initiated 08/20/25 07:53 Consult: Infectious Disease Routine Consulting Provider: Charlie Philip Reason for Consult: fever, unclear source, s/p right hip hemiarthorplasty 08/17 EMERGENT Consult: No Notified: Yes Date Notified: 08/20/25 Time Notified: 07:53 Method of Notification: Text Reason For Visit: FALL R HIP PAIN Diagnosis Discharge Diagnosis (1) Fever: Status: Acute Code(s): R50.9 - Fever, unspecified (2) Subcapital fracture of right hip: Status: Acute Code(s): S72.011A - Unspecified intracapsular fracture of right femur, initial encounter for closed fracture Plan The patient is a 70 y/o M after tripped and fell over a curb while shopping at [employer] with unfortunately onset significant right hip pain and debility prompting EMS and transition to the ED for evaluation. #1. Acute debility due to right hip pain from right hip subcapital displaced femoral neck fracture with moderate primary osteoarthritis: Orthopedic surgery consulted from ED. patient is being admitted on MedSur floor. Pain control. PT and OT ordered. Supportive medication for nausea and vomiting. manager office services consulted. As per NSQIP criteria, patient low to moderate risk for perioperative cardiac events. Denies chronic heart disease or lung disease. 08/18: Patient had right hip direct anterior total replacement for right hip subcapital displaced femoral neck fracture with moderate primary osteoarthritis. Patient out of bed and walking to bathroom on walker. Seen by orthopedic surgeon. On baby aspirin 81 mg twice daily for DVT prophylaxis. Pain is controlled. Continue PT and OT. 08/19: Patient is up and moving. Patient having fever Tmax 100.7 Fahrenheit since yesterday night. Denies burning micturition. UA with reflex urine culture ordered. Patient had chest x-ray which does not show any acute consolidation. Suspected possible UTI. No leukocytosis urine. Empirically started on IV aztreonam with anaphylactic allergy to penicillin 08/20: ID consult requested and evaluated the patient. Patient not having any focal symptoms including headache, sore throat, cough, shortness of breath, chest pain, diarrhea, abdominal pain or rash. Feeling overall fine. Patient not on immunosuppressant. Asymptomatic postop fever. UA negative chest x-ray clear. He requested to stop antibiotic and discharge the patient. Probably inflammatory fever. Advised follow-up PCP in 1 week. Prescription given for oxycodone 2.5 mg for moderate pain and 5 mg for severe pain respectively. No previous prescription for narcotics or other stimulants. Tylenol 1 g every 8 hourly. Follow-up posterior orthopedics in 2 weeks #2. Elevated BP without hypertensive diagnosis: Patient denies any history of hypertensive history, elevated BP in the ED, likely pain related as well as anxiety, will have as needed as needed hydralazine. 08/18: Blood pressure is controlled 130/54. 08/20: Overall it seems patient has hypertension. Advised follow-up with PCP. Prescription given empirically for chlorthalidone #3. Hypokalemia: Admission K+ 3.2, repeat potassium is 3.3. Continue replace potassium. Serum magnesium normal 1.9. 08/18: Labs shows potassium 3.6. #4. Chronic microcytic anemia: Admission hemoglobin 10, MCV 76, iron profile shows low iron, TIBC high iron saturation 2.9%. Unsaturated IBC high 442 and ferritin is low therefore consistent with iron deficiency anemia. Stool for occult blood ordered. IV iron ordered. Repeat H&H 9.2/31%. Monitor CBC 07/19: H&H 8.5/30.7, decreased from 10/35%. Patient had 1 dose of IV iron yesterday. 1 more dose ordered today. 07/21: Acute on chronic microcytic anemia: Hemoglobin low. Patient had 2 doses of IV iron. Discharged on ferrous sulfate and ascorbic acid. Advised follow-up PCP #5. Rheumatoid arthritis, psoriatic arthritis: Noted rheumatological disease history, notes managed without medications, encourage follow-up with rheumatology as previously arranged or as needed. Not on immunosuppressive #6. Tobacco Abuse: Patient smokes less than 10 cigarettes/day. Nicotine patch ordered. Encouraged cessation #7. Anxiety/panic attacks: as needed hydroxyzine, is ordered. #8. DVT prophylaxis: SCDs, as patient has high reminiscence anemia with low H&H therefore agree with baby aspirin 81 mg twice daily as during prophylaxis #9. CODE status: Patient does not have [facility] research attorney or living [address] but she notes her significant who she lives with would be here Medical Decision Making necessary. Discussed CODE status at length including difference between FULL code, DNR-CCA and DNR-CC status. Full code Discharge medication reconciliation done. Discharge follow-up instructions completed. Discharge process discussed with the patient and all questions were answered to patient's satisfaction. Follow with PCP in 1 to 2 weeks Total time spent, exact 35 minutes on discharge meds reconciliation, examination, coordination of care with nurses and ancillary staff, review of imaging and blood test and discussion with the patient on follow-up instructions. Medications at Discharge Home Medications cyanocobalamin (vitamin B-12) 1 cap PO DAILY 08/16/25 magnesium-potassium 99 mg- 90 mg capsule 1 cap PO DAILY 08/16/25 multivitamin (Daily Multi-Vitamin tablet) 1 tab PO DAILY 08/16/25 perservation 2 drp ophthalmic (eye) TID eyes 08/16/25 ascorbic acid (vitamin C) 1,000 mg tablet 1,000 mg PO DAILY 1 month #30 tabs 08/20/25 aspirin 81 mg chewable tablet 81 mg PO BIDCM 30 days #60 tabs 08/20/25 chlorthalidone 25 mg tablet 12.5 mg (1/2 x 25 mg) PO DAILY #30 tabs 08/20/25 ferrous sulfate 325 mg (65 mg iron) tablet (FeroSul) 325 mg PO DAILY 30 days #30 tabs 08/20/25 oxycodone 5 mg tablet 2.5 - 5 mg (0.5 - 1 x 5 mg) PO Q4H PRN PRN Pain Score 4-10 3 days #7 tabs 08/20/25 pantoprazole 40 mg tablet,delayed release (Protonix) 40 mg PO DAILY 1 month #30 tabs 08/20/25 sennosides 8.6 mg-docusate sodium 50 mg tablet (Stimulant Laxative Plus) 2 tab PO BID #0 tabs 08/20/25 Physical Exam Narrative Seen and examined. Patient having fever, low-grade Tmax 100.3 Fahrenheit. She had a Mejía catheter which was removed. No focal symptoms of infection Patient had right hip surgery on 08/17. Patient up and walking on the walker to the bathroom. Pain is controlled. Had BM yesterday Physical exam General: Alert, Oriented x3, Cooperative. BMI 20.2 kg/m? HEENT: Atraumatic, PERRLA, EOMI, Normocephalic. Oral: No Gingival or Mucosal Lesions/ Ulcerations Neck: Supple, No JVD, Negative Carotid Bruits Chest wall/Lungs: Air entry diminished in bilateral lung bases. No crepitation/rhonchi Cardiovascular: Regular rate and rhythm, Normal S1,S2, No M/G/R Abdomen: Bowel Sounds Present, Soft, Non Tender, Non-Distended : No dysuria. No renal angle tenderness. No suprapubic tenderness. Extremities: No edema, Capillary Refill Less than 3 Seconds Skin: Surgical dressing is dry intact and clean. No rash. Musculoskeletal: Right anterior hip hemiarthroplasty. Neurological: Cranial nerves II-XII grossly intact, DTR 2+/4. No acute focal neurological deficit. Psych/Mental Status: Flat affect Weight / BMI Weight Weight: 111 lb 1.808 oz Body Mass Index (BMI) 19.7 ABG / Lab / Microbiology Data 08/20/25 06:42 08/20/25 06:42 Laboratory: Laboratory Results - last 24 hr 08/19/25 06:10: ESR 32 H, C-React Prot Ext Range 127.00 H 08/19/25 11:55: Urine Color Yellow, Urine Clarity Clear, Urine pH 6.0, Ur Specific [place] 1.020, Urine Protein 30 H, Urine Glucose (UA) Normal, Urine Ketones Negative, Urine Occult Blood 25 H, Urine Nitrite Negative, Urine Bilirubin Negative, Urine Urobilinogen Normal, Ur Leukocyte Esterase 25 H, Urine RBC 0 SEEN, Urine WBC 0-5 SEEN, Ur Squamous Epith Cells 0 SEEN, Urine Bacteria Not Reportable, Urine Mucus 1+ 08/20/25 06:42: WBC 8.5, RBC 3.57 L, Hgb 7.5 L, Hct 27.0 L, MCV 75.6 L, MCH 21.0 L, MCHC 27.8 L, RDW Std Deviation 43.9, RDW Coeff of Oli 15.9 H, Plt Count 260, MPV 10.3, Immature Gran % (Auto) 0.600, Neut % (Auto) 69.9, Lymph % (Auto) 11.9 L, [place] % (Auto) 12.5 H, Eos % (Auto) 4.4, Baso % (Auto) 0.7, Absolute Neuts (auto) 5.9, Absolute Lymphs (auto) 1.01, Nucleated RBC % 0, Sodium 138, Potassium 3.9, Chloride 104, Carbon Dioxide 26.9, Anion Gap 7, BUN 21 H, C reatinine 0.53 L, Estim Creat Clear Calc 51.01, Est GFR (MDRD) Non-Af 99, B UN/Creatinine Ratio 39.7 H, Glucose 109 H, Calcium 8.5, Total Bilirubin 0.53, AST 22, ALT 12, Alkaline Phosphatase 77, Total Protein 5.5 L, Albumin 3.0 L, Globulin 2.5, Albumin/Globulin Ratio 1.2 Microbiology: Microbiology 08/19/25 05:05 Mucosa - Nasopharyngeal SARS-CoV-2, Influenza & RSV (PCR) - Final D/C Instructions May shower in (days): 1 Ice area for (Minutes): 20 Weight Bearing Status: Weight bearing as tolerated Additional Activity Instructions: Wear elastic stockings for 2 weeks. DO NOT use alcohol with narcotic pain medication. DO NOT make important decisions while taking narcotic medication. If you have problems with taking your medication (rash, itching, nausea, etc.) call the office at once. Call your doctor if your incision/area has: Increased Redness and Foul Smelling Discharge Call your doctor if you observe: Fever of 101 or Higher Additional Dressing/Incision Instructions: If incision is clean dry and intact may leave the wound open to air and continue showering. If there is continued drainage continue daily dry dressing changes and keep incision clean dry and intact until there is no drainage. DC O2, CPAP, BIPAP Needs Home O2 Discharge instructions: No Please Follow Up With: Uzair Duque PA-C When: 2 weeks post op Meaningful Use Info Meaningful Use Meaningful Use Diagnoses (Choose all that apply): None applicable Discharge Plan Admission Admit Date/Time: 08/16/25 20:03 Primary Reason for Your Visit: Right hip subcapital displaced femoral neck fracture Attending Provider: Zack Hurtado Primary Care Provider: Care Physician,No Primary Consulting Providers: Armando Deras; Lexie Byrder,Charlie Discharge Orders/Prescriptions Prescriptions: New aspirin 81 mg Tablet,Chewable 81 mg PO BIDCM 30 Days Qty: 60 0RF sennosides-docusate sodium [Stimulant Laxative Plus] 8.6-50 mg Tablet 2 tab PO BID Qty: 0 0RF oxycodone 5 mg Tablet 2.5 - 5 mg PO Q4H PRN PRN (Reason: Pain Score 4-10) 3 Days Qty: 7 0RF pantoprazole [Protonix] 40 mg tablet,delayed release (DR/EC) 40 mg PO DAILY 30 Days Qty: 30 2RF ascorbic acid (vitamin C) 1,000 mg tablet 1,000 mg PO DAILY 30 Days Qty: 30 2RF chlorthalidone 25 mg tablet 12.5 mg PO DAILY Qty: 30 3RF Rx Instructions: Hold if serum sodium is less than 130 mg/dL ferrous sulfate [FeroSul] 325 mg (65 mg iron) tablet 325 mg PO DAILY 30 Days Qty: 30 2RF Continued multivitamin [Daily Multi-Vitamin] Tablet 1 tab PO DAILY cyanocobalamin (vitamin B-12) [Vitamin B-12] 1 cap PO DAILY magnesium-potassium 99-90 mg capsule 1 cap PO DAILY perservation 2 drp ophthalmic (eye) TID Referrals / Follow Up: Armando Deras MD [Med Staff - Active Staff, Orthopedics] - Within 2 Weeks Care Physician,No Primary [Primary Care Provider, Medical] Disposition Disposition (needs filled in before D/C Order can be placed): Home, Self Care Charges/Coding Visit Charges Inpatient E&M: 92355 Disch Hosp >30min
--- NOTE | 2025-08-20 13:30 | PHA.DC_ITS ---
Pharmacy [facility] Counseling Pharmacy Service has performed discharge medication reconciliation and counseling for this patient. 1. ASCORBIC ACID 1000MG PO DAILY 2. ASPIRIN 81MG PO BID X 30 DAYS 3. CHLORTHALIDONE 12.5MG PO DAILY 4. FERROUS SULFATE 325MG PO DAILY 5. OXYCODONE 2.5-5MG PO Q4H PRN PAIN 6. PANTOPRAZOLE 40MG PO DAILY X 30 DAYS 7. SENNA/DOCUSATE 2T PO BID The patient's discharge medication list was reviewed for discrepancies and discrepancies were resolved. The patient was counseled on the following discharge medications and changes in medications for homegoing were reviewed. The Reason for Use, instructions for use, and potential side effects were reviewed for all new medications. The patient's questions regarding all of their medications were answered. The patient was able to verbally demonstrate an understanding of their discharge medications. Medications at Discharge Home Medications cyanocobalamin (vitamin B-12) 1 cap PO DAILY 08/16/25 magnesium-potassium 99 mg- 90 mg capsule 1 cap PO DAILY 08/16/25 multivitamin (Daily Multi-Vitamin tablet) 1 tab PO DAILY 08/16/25 perservation 2 drp ophthalmic (eye) TID eyes 08/16/25 ascorbic acid (vitamin C) 1,000 mg tablet 1,000 mg PO DAILY 1 month #30 tabs 08/20/25 aspirin 81 mg chewable tablet 81 mg PO BIDCM 30 days #60 tabs 08/20/25 chlorthalidone 25 mg tablet 12.5 mg (1/2 x 25 mg) PO DAILY #30 tabs 08/20/25 ferrous sulfate 325 mg (65 mg iron) tablet (FeroSul) 325 mg PO DAILY 30 days #30 tabs 08/20/25 oxycodone 5 mg tablet 2.5 - 5 mg (0.5 - 1 x 5 mg) PO Q4H PRN PRN Pain Score 4-10 3 days #7 tabs 08/20/25 pantoprazole 40 mg tablet,delayed release (Protonix) 40 mg PO DAILY 1 month #30 tabs 08/20/25 sennosides 8.6 mg-docusate sodium 50 mg tablet (Stimulant Laxative Plus) 2 tab PO BID #0 tabs 08/20/25
== END 2025-08-20 13:15 | disposition home or self-care (01) | DRG 522 ==
LOC: ED 20:28 → MS3 20:33
PROVIDERS: Specialist; Admitting Provider Family Medicine; Emergency Provider Emergency Medicine; Visit Provider Internal Medicine
PROC: 0SR902A Replacement of Right Hip Joint with Metal on Polyethylene Synthetic Substitute, Uncemented, Open Approach (ICD-10-PCS; CPT 27125; principal; 2025-08-17 05:30)
DX: S72.011A Unspecified intracapsular fracture of right femur, initial encounter for closed fracture (principal); D50.9 Iron deficiency anemia, unspecified; E87.6 Hypokalemia; F17.210 Nicotine dependence, cigarettes, uncomplicated; F41.0 Panic disorder [episodic paroxysmal anxiety]; L40.50 Arthropathic psoriasis, unspecified; M41.9 Scoliosis, unspecified; M19.91 Primary osteoarthritis, unspecified site; W01.198A Fall on same level from slipping, tripping and stumbling with subsequent striking against other object, initial encounter; M06.9 Rheumatoid arthritis, unspecified; R50.82 Postprocedural fever; R03.0 Elevated blood-pressure reading, without diagnosis of hypertension
CPT/HCPCS: 36415; 71045; 73502; 76000; 80048; 80053; 81001; 82728; 83540; 83550; 83735; 85025; 85610; 85652; 85730; 86140; 87040; 87086; 87088; 87631; 87633; 88304; 88311; 93005; 94668; 97116; 97162; 97165; 97530; 97535; 99284; C1776; A4216; J2405; J2916